=== PATIENT | female | born 1990 | race Caucasian/White ===

== ENCOUNTER 2021-11-12 20:58 | Inpatient (IN) | payer SELFPAY ==
[2021-11-12] MEDS ORDERED: ACETAMINOPHEN 500 MG TAB PO ONE (22:30)
--- NOTE | 2021-11-13 01:19 | Ultrasound Report ---
ULTRASOUND OBSTETRIC COMPLETE INDICATION / CLINICAL INFORMATION: ALICJA, EFW. Clinical Gestational Age (GA) in weeks, days: 34 weeks 2 days TECHNIQUE: Transabdominal. COMPARISON: None available. FINDINGS: NUMBER: Single PRESENTATION: cephalic PLACENTA: anterior and free of the os. MATERNAL ADNEXA: No significant abnormality. AMNIOTIC FLUID VOLUME: decreased AMNIOTIC FLUID INDEX (ALICJA) in cm (if measured): 2.8 BREATHING MOVEMENT = 2 GROSS BODY MOVEMENT = 2 TONE = 2 QUALITATIVE AMNIOTIC FLUID VOLUME = 2 TOTAL BIOPHYSICAL SCORE = 12/14 MEASUREMENTS: - Biparietal Diameter = 10.8 cm = 40 weeks 0 days - Head Circumference = 33.8 cm = 38 weeks 6 days - Abdominal Circumference = 36.5 cm = 40 weeks 3 days - Femur Length = 7.0 cm = 36 weeks 0 days - Estimated Weight (in grams, if calculated): 3959 - Heart Rate (beats per minute): 161 ADDITIONAL FINDINGS: None. AVERAGE ULTRASOUND AGE (AUA) in weeks, days = 38 weeks 4 days IMPRESSION: 1. Single intrauterine with AUA of 38 weeks 4 days. Estimated weight of 3959 g. 2. Diminished amniotic fluid index measuring 2.8 cm. 3. Biophysical profile 12/14. Signer Name: Ezequiel Lawler MD Signed: 11/13/2021 1:15 AM Workstation Name: [id number]
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
[2021-11-13] MEDS ORDERED: fentaNYL 100 MCG/2 ML INJ IV PRN (02:11)
[2021-11-13] MEDS ORDERED: SODIUM CHLORIDE 0.9% 1000 ML 1,000 ML IV ONE (02:11)
[2021-11-13] MEDS ORDERED: BUTORPHANOL 2 MG/1 ML INJ IV PRN (02:11)
[2021-11-13 02:52] LABS: Basophils % (Auto) 0.3 % (0.0-1.8); Eosinophils # (Auto) 0.1 K/mm3 (0.0-0.4); Eosinophils % (Auto) 1.4 % (0.0-4.3); Hematocrit 36.3 % (30.3-42.9); Hemoglobin 12.4 gm/dl (10.1-14.3); Lymphocytes # (Auto) 1.7 K/mm3 (1.2-5.4); Lymphocytes % (Auto) 28.5 % (13.4-35.0); Mean Corpuscular HGB Conc 34 % (30-34); Mean Corpuscular Volume 89 fl (79-97); Monocytes # (Auto) 0.3 K/mm3 (0.0-0.8); Monocytes % (Auto) 4.9 % (0.0-7.3); Platelet Count 108 K/mm3 (140-440); Red Blood Count 4.08 M/mm3 (3.65-5.03)
[2021-11-13 03:07] LABS: Alanine Aminotransferase 21 units/L (7-56); Albumin 3.5 g/dL (3.9-5); Blood Urea Nitrogen 10 mg/dL (7-17); Calcium 9.1 mg/dL (8.4-10.2); Hemolysis Index 16
[2021-11-13 03:09] LABS: BUN/Creatinine Ratio 25
[2021-11-13 05:06] LABS: Bacteria,Urine 3+ /HPF (Negative); Mucus,Urine FEW /HPF; RBC,Urine < 1.0 /HPF (0.0-6.0)
[2021-11-13 05:11] LABS: Bilirubin,Urine Negative (Negative); Blood,Urine Negative (Negative); Color,Urine Straw (Yellow); Urobilinogen,Urine < 2.0 mg/dL (<2.0)
[2021-11-13 05:17] LABS: Creatinine,Urine 108.7 mg/dL (0.1-20.0)
[2021-11-13] MEDS: INSULIN NPH, HUMAN 100 UNIT/1 ML SUB-Q SCH (10:25)
[2021-11-13] MEDS: INSULIN REGULAR, HUMAN 100 UNITS/1 ML SUB-Q SCH ×2 (10:26→18:02)
[2021-11-13] MEDS: ACETAMINOPHEN 325 MG TAB PO PRN (10:35)
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
--- NOTE | 2021-11-13 12:33 | Ultrasound Report ---
ULTRASOUND OBSTETRIC LIMITED INDICATION / CLINICAL INFORMATION: Newly dx'ed oligohydramnios Class B diabetes. Clinical Gestational Age (GA) in weeks, days: 34 weeks 1 day TECHNIQUE: Transabdominal. COMPARISON: Limited OB ultrasound with biophysical profile performed yesterday. FINDINGS: HEART RATE (beats per minute): 144 AMNIOTIC FLUID INDEX (cm) = 8.7 (normal = 7-24 cm) PRESENTATION: Cephalic. ADDITIONAL FINDINGS: Mild bilateral pyelectasis is noted. IMPRESSION: 1. Amniotic fluid index measures normal on today's exam at 8.7 cm, previously 2.8 cm. 2. Mild bilateral pyelectasis is incidentally noted. Scribed by: Lissette Obregon RDMS, SUMI, FLAVIO Scribed: 11/13/2021 11:28 AM I have reviewed the images, agree with this report, and edited this report as needed. Signer Name: Antonio Vasquez MD Signed: 11/13/2021 12:28 PM Workstation Name: [id number]
--- NOTE | 2021-11-13 13:30 | Event Note ---
Date: 11/13/21 S: Feeling ok O: ALICJA now 8.7, CAT I tracing A: 34.1 weeks with GDM poor control, now on insulin LGA baby P: APA consult appreciated 24 Hr urine Anti Aida titers requested Repeat ALICJA in 24-48 hrs
[2021-11-13] MEDS ORDERED: LACTATED RINGERS 1,000 ML ONE (14:54)
--- NOTE | 2021-11-13 17:57 | Electrocardiograph Report ---
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
[2021-11-14] MEDS: INSULIN NPH, HUMAN 100 UNIT/1 ML SUB-Q SCH ×3 (00:54→21:30)
[2021-11-14] MEDS: SODIUM CHLORIDE 0.9% 1000 ML 1,000 ML IV SCH (01:00)
[2021-11-14] MEDS ORDERED: ONDANSETRON 4 MG/2 ML INJ ONE (01:29)
[2021-11-14] MEDS ORDERED: ONDANSETRON 4 MG/2 ML INJ IV ONE (01:30)
[2021-11-14] MEDS: INSULIN REGULAR, HUMAN 100 UNITS/1 ML SUB-Q SCH ×2 (09:29→17:57)
--- NOTE | 2021-11-14 12:25 | Progress Note ---
Assessment and Plan A: IUP @ 34 2/7 Weeks IDDM Maternal Obesity LGA Low ALICJA P: Continue MD Management of IDDM Complete 24 hour urine collection Subjective - Subjective Date of service: 11/14/21 Patient reports: movement normal Objective - Vital Signs Vital Signs: Vital Signs - 12hr 11/14/21 11/14/21 11/14/21 00:24 00:29 00:34 Temperature Pulse Rate 79 79 83 Respiratory Rate Blood Pressure O2 Sat by Pulse 98 99 98 Oximetry O2 Sat by Pulse Oximetry [ Anterior Bilateral Throughout] O2 Sat by Pulse Oximetry [ Posterior Bilateral Throughout] 11/14/21 11/14/21 11/14/21 00:39 00:44 00:49 Temperature Pulse Rate 76 75 75 Respiratory Rate Blood Pressure O2 Sat by Pulse 98 98 98 Oximetry O2 Sat by Pulse Oximetry [ Anterior Bilateral Throughout] O2 Sat by Pulse Oximetry [ Posterior Bilateral Throughout] 11/14/21 11/14/21 11/14/21 00:54 00:59 01:02 Temperature Pulse Rate 74 75 78 Respiratory Rate Blood Pressure 137/84 O2 Sat by Pulse 98 98 Oximetry O2 Sat by Pulse Oximetry [ Anterior Bilateral Throughout] O2 Sat by Pulse Oximetry [ Posterior Bilateral Throughout] 11/14/21 11/14/21 11/14/21 01:04 05:15 05:20 Temperature 97.8 F Pulse Rate 78 80 Respiratory 17 Rate Blood Pressure 121/71 O2 Sat by Pulse 99 Oximetry O2 Sat by Pulse Oximetry [ Anterior Bilateral Throughout] O2 Sat by Pulse Oximetry [ Posterior Bilateral Throughout] 11/14/21 11/14/21 11/14/21 05:30 09:15 09:44 Temperature 98.7 F 98.1 F Pulse Rate 95 H Respiratory 16 16 Rate Blood Pressure 114/61 O2 Sat by Pulse 98 Oximetry O2 Sat by Pulse Oximetry [ Anterior Bilateral Throughout] O2 Sat by Pulse Oximetry [ Posterior Bilateral Throughout] 11/14/21 11/14/21 10:54 11:54 Temperature Pulse Rate 77 Respiratory Rate Blood Pressure 117/59 O2 Sat by Pulse Oximetry O2 Sat by Pulse 98 Oximetry [ Anterior Bilateral Throughout] O2 Sat by Pulse 98 Oximetry [ Posterior Bilateral Throughout] - Exam Breasts: normal Cardiovascular: Regular rate Lungs: Clear to auscultation, Normal air movement Abdomen: Present: normal appearance, soft, normal bowel sounds Uterus: Present: normal, firm, fundal height above umbilicus FHR: auscultation normal Uterine Contraction Monitor Mode: External Uterine Tone Measurement Phase: Resting Extremities: edema (+1 pedal edema (bilateral)) - Labs Labs: Abnormal Labs 11/13/21 11/13/21 11/13/21 02:11 02:38 02:38 Plt Count 108 L Sodium 134 L Carbon Dioxide 17 L Creatinine 0.4 L Glucose 104 H POC Glucose 120 H Hemoglobin A1c AST 42 H Alkaline Phosphatase 152 H Lactate Dehydrogenase 194 H Total Protein 6.2 L Albumin 3.5 L U Epithel Cells (Auto) Urine Creatinine Urine Total Protein 11/13/21 11/13/21 11/13/21 02:38 04:50 04:50 Plt Count Sodium Carbon Dioxide Creatinine Glucose POC Glucose Hemoglobin A1c 7.5 H AST Alkaline Phosphatase Lactate Dehydrogenase Total Protein Albumin U Epithel Cells (Auto) 15.0 H Urine Creatinine 108.7 H Urine Total Protein 60 H 11/13/21 11/13/21 11/14/21 12:49 18:02 11:53 Plt Count Sodium Carbon Dioxide Creatinine Glucose POC Glucose 119 H 184 H 109 H Hemoglobin A1c AST Alkaline Phosphatase Lactate Dehydrogenase Total Protein Albumin U Epithel Cells (Auto) Urine Creatinine Urine Total Protein Laboratory Results - last 24 hr 11/13/21 11/13/21 11/13/21 02:38 12:49 18:02 POC Glucose 119 H 184 H Blood Type O POSITIVE Antibody Screen Positive Antibody Identification Anti-K 11/14/21 11/14/21 05:27 11:53 POC Glucose 101 109 H Blood Type Antibody Screen Antibody Identification
--- NOTE | 2021-11-15 07:57 | Progress Note ---
Assessment and Plan A: IUP @ 34 3/7 Weeks IDDM Maternal Obesity LGA Low ALICJA P: Continue MD Management of IDDM Complete 24 hour urine collection (had to be restarted due to error) Subjective - Subjective Date of service: 11/15/21 Patient reports: movement normal Objective - Vital Signs Vital Signs: Vital Signs - 12hr 11/14/21 19:58 Pulse Rate 80 O2 Sat by Pulse 97 Oximetry - Exam Breasts: normal Cardiovascular: Regular rate Lungs: Clear to auscultation, Normal air movement Abdomen: Present: normal appearance, soft, normal bowel sounds Uterus: Present: normal, firm, fundal height above umbilicus FHR: auscultation normal Uterine Contraction Monitor Mode: External Uterine Tone Measurement Phase: Resting Extremities: normal - Labs Labs: Abnormal Labs 11/13/21 11/13/21 11/13/21 02:11 02:38 02:38 Plt Count 108 L Sodium 134 L Carbon Dioxide 17 L Creatinine 0.4 L Glucose 104 H POC Glucose 120 H Hemoglobin A1c AST 42 H Alkaline Phosphatase 152 H Lactate Dehydrogenase 194 H Total Protein 6.2 L Albumin 3.5 L U Epithel Cells (Auto) Urine Creatinine Urine Total Protein 11/13/21 11/13/21 11/13/21 02:38 04:50 04:50 Plt Count Sodium Carbon Dioxide Creatinine Glucose POC Glucose Hemoglobin A1c 7.5 H AST Alkaline Phosphatase Lactate Dehydrogenase Total Protein Albumin U Epithel Cells (Auto) 15.0 H Urine Creatinine 108.7 H Urine Total Protein 60 H 11/13/21 11/13/21 11/14/21 12:49 18:02 11:53 Plt Count Sodium Carbon Dioxide Creatinine Glucose POC Glucose 119 H 184 H 109 H Hemoglobin A1c AST Alkaline Phosphatase Lactate Dehydrogenase Total Protein Albumin U Epithel Cells (Auto) Urine Creatinine Urine Total Protein 11/14/21 11/14/21 11/15/21 15:16 19:59 05:38 Plt Count Sodium Carbon Dioxide Creatinine Glucose POC Glucose 130 H 114 H 68 L Hemoglobin A1c AST Alkaline Phosphatase Lactate Dehydrogenase Total Protein Albumin U Epithel Cells (Auto) Urine Creatinine Urine Total Protein Laboratory Results - last 24 hr 11/14/21 11/14/21 11/14/21 11:53 15:16 19:59 POC Glucose 109 H 130 H 114 H 11/15/21 11/15/21 05:38 07:22 POC Glucose 68 L 73
[2021-11-15] MEDS: INSULIN NPH, HUMAN 100 UNIT/1 ML SUB-Q SCH ×2 (09:33→22:17)
[2021-11-15] MEDS: INSULIN REGULAR, HUMAN 100 UNITS/1 ML SUB-Q SCH ×2 (09:35→18:36)
[2021-11-15 19:21] LABS: Creatinine,Urine 60.4 mg/dL (0.1-20.0)
[2021-11-16] MEDS: SODIUM CHLORIDE 0.9% 1000 ML 1,000 ML IV SCH (03:36)
[2021-11-16] MEDS: INSULIN REGULAR, HUMAN 100 UNITS/1 ML SUB-Q SCH ×2 (08:20→18:30)
[2021-11-16] MEDS: INSULIN NPH, HUMAN 100 UNIT/1 ML SUB-Q SCH ×2 (09:01→23:16)
[2021-11-16 09:49] LABS: Bilirubin,Urine NEG (Negative); Blood,Urine MOD (Negative); Color,Urine Yellow (Yellow); Urobilinogen,Urine < 2.0 mg/dL (<2.0)
[2021-11-16 09:54] LABS: Bacteria,Urine 4+ /HPF (Negative); Mucus,Urine FEW /HPF
[2021-11-16] MEDS: NITROFURANTOIN MONOHYD/M-CRYST 100 MG CAP PO SCH ×2 (12:00→23:17)
--- NOTE | 2021-11-16 13:14 | Ultrasound Report ---
US OB limited INDICATION: repeat ALICJA. TECHNIQUE: Transabdominal. COMPARISON: None available. FINDINGS: There is a single intrauterine . Heart Rate: 140 beats per minute. Position: cephalic. Amniotic Fluid Volume: decreased Amniotic Fluid Index (ALICJA) in cm (if calculated): 6.9. IMPRESSION: 1. Oligohydramnios. Signer Name: Dennis Vazquez MD Signed: 11/16/2021 1:09 PM Workstation Name: [employer]
--- NOTE | 2021-11-16 17:22 | Consultation ---
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 diabetic nephropathy - will need neph consult after delivery - BP's stable A) IUP @ 34 4/7 weeks per RONALD 12/24/21 via [facility] @ [facility] Pt under no MFM management AMA - 07/27/21 AFP Negative Morbid obesity Hx of GDM x 3 required insulin per patient's account With a 1 GTT of 244 mg there is a concern for PreGestational DM - pt and reports elevated FBS of 120's and PP of 140-150's under no medical therapy : Primary OB had been managing BS - current HgbA1C of 7.5% - while inpatient improved BS levels under medical therapy of QAM 49N/24R ; QPM 18R and QHS 18N Positive Antibody screen: Anti [place] no titer documented @ PNR ( pt reports she is unaware of this result and associated risks) - no documentation of FOC antigen screen Thrombocytopenia - presently PLT of 108K - PNR PLT of 123K - Stable BP with no [employer] features History of C/S : malpresentation 11/12/2021 [facility] US: EGA(AUA) 38.4 weeks Accelerated growth profile with EFW of 3959 gm @ 99% VTX Oligohydramnios with ALICJA of 2.8 cm ( Negative ROM plus ) BPP of 8/10 ( - 2 for ALICJA ) 11/13/2021 [facility] US: ALICJA of 8.7 cm kidneys appear with bilateral hydroneprohosis ( no measurement ) CAT 1 Tracing with irregular contractions Stable BP with no [employer] features P) Presently Pt is to remain in patient with continuous monitoring 2200 ADA diet Continue her current medical therapy Continue FBS and PP Repeat BPP with ALICJA in 48 hrs on 11/18/21 Obtain 24 hr urine and PreE labs see above Document baseline PreE labs Repeat CBC to be repeated Obtain hard copy of patient's lab from her OB clinic Obtain Antibody screen with titer...with confirm anti Aida antibody screen . Order MCA PSV Doppler if [facility] [employer] can do Document the [place] antibody status of the FOB. If the father is negative for the further evaluation is unnecessary. Confirm negative aneuploidy screen Discussed with pt and FOC at length Morbidity and Mortality risks associated with poorly controlled DM to inc IUFD timing of delivery will be at 36 weeks Consider repeat C/S if fluid < 5 or at 35 weeks if remains stable - difficult to rely on MCA PSV after 35 weeks Past History Past Medical History: no pertinent history, other (Gestational diabetes with all of her previous pregnancies. However, patient has not been formally evaluated for diabetes mellitus outside of .) Past Surgical History: section Family/Genetic History: diabetes - Obstetrical History : 4 Medications and Allergies Allergies Allergy/AdvReac Type Severity Reaction Status Date / Time No Known Allergies Allergy Unverified 04/23/15 18:30 Home Medications Medication Instructions Recorded Confirmed Last Taken Type Pnv,Calcium 72/Iron/Folic Acid 1 tab PO DAILY 05/16/15 11/16/21 11/12/21 History [Pnv Plus Multivit Tab] Active Meds: Active Medications Acetaminophen (Acetaminophen 325 Mg Tab) 650 mg PO Q4H PRN PRN Reason: Pain, Mild (1-3) Last Admin: 11/13/21 10:35 Dose: 650 mg Butorphanol Tartrate (Butorphanol 2 Mg/1 Ml Inj) 2 mg IV Q2H PRN PRN Reason: Pain, Moderate(4-6) [employer] Fentanyl (Fentanyl 100 Mcg/2 Ml Inj) 100 mcg IV Q2H PRN PRN Reason: Pain,Severe (7-10) [employer] PAIN Sodium Chloride (Nacl 0.9% 1000 Ml) 1,000 mls @ 125 mls/hr IV DIRECT [facility] Last Admin: 11/16/21 03:36 Dose: 125 mls/hr Insulin Human NPH (Insulin Nph, Human 100 Unit/1 Ml) 18 unit SUB-Q QHS [facility] Last Admin: 11/15/21 22:17 Dose: 18 unit Insulin Human NPH (Insulin Nph, Human 100 Unit/1 Ml) 49 unit SUB-Q 0730 [facility] Last Admin: 11/16/21 09:01 Dose: 49 unit Insulin Human Regular (Insulin Regular, Human 100 Units/1 Ml) 24 units SUB-Q 0730 [facility] Last Admin: 11/16/21 08:20 Dose: 24 units Insulin Human Regular (Insulin Regular, Human 100 Units/1 Ml) 18 units SUB-Q 1800 [facility] Last Admin: 11/15/21 18:36 Dose: 18 units Nitrofurantoin Macrocrystals (Nitrofurantoin Monohyd/M-Cryst 100 Mg Cap) 100 mg PO Q12HR [facility] Last Admin: 11/16/21 12:00 Dose: 100 mg - Vital Signs Vital signs: Vital Signs Pulse Pulse Ox 89 98 11/12/21 21:16 11/12/21 21:16 Temp Pulse Resp BP Pulse Ox 98.3 F 78 16 119/68 99 11/16/21 14:11 11/16/21 17:08 11/16/21 14:11 11/16/21 14:11 11/16/21 17:08 Results Result Diagrams: 11/13/21 02:38 11/13/21 02:38 Abnormal lab results 11/13/21 11/14/21 11/15/21 Range/Units 13:26 01:15 20:14 POC Glucose 137 H (70-105) mg/dL Urine WBC (Auto) (0.0-6.0) /HPF U Epithel Cells (Auto) (0-13.0) /HPF Urine Creatinine 60.4 H (0.1-20.0) mg/dL Ur Total Protein 24 Hr 580.00 H (2-200) mg/dL Urine Total Protein 29 H 26 H (5-11.8) mg/dL 11/16/21 11/16/21 11/16/21 Range/Units 09:15 10:38 14:12 POC Glucose 66 L 143 H (70-105) mg/dL Urine WBC (Auto) 18.0 H (0.0-6.0) /HPF U Epithel Cells (Auto) 25.0 H (0-13.0) /HPF Urine Creatinine (0.1-20.0) mg/dL Ur Total Protein 24 Hr (2-200) mg/dL Urine Total Protein (5-11.8) mg/dL All other labs normal.
--- NOTE | 2021-11-16 17:37 | Progress Note ---
Assessment and Plan A: HD5, @34.4wks today GDM, resolved Oligo, macrosomia P: Continue TOCO EFM Q4hr unless contractions starts continue BS monitoring and insulin administration Subjective - Subjective Date of service: 11/16/21 (1000) Principal diagnosis: GDM uncontrolled, oligohydramnios, macrosomia, anti shaunna antibody, csec x1 Patient reports: movement normal, other (pink tinge noted on tissue with urination) Objective - Vital Signs Vital Signs: Vital Signs - 12hr 11/16/21 11/16/21 11/16/21 08:11 08:12 08:17 Temperature 98.7 F Pulse Rate 90 89 83 Respiratory 16 Rate Blood Pressure 141/79 O2 Sat by Pulse 99 99 99 Oximetry O2 Sat by Pulse 99 Oximetry [ Anterior Bilateral Throughout] 11/16/21 11/16/21 11/16/21 14:10 14:11 14:15 Temperature 98.3 F Pulse Rate 74 73 75 Respiratory 16 Rate Blood Pressure 119/68 O2 Sat by Pulse 98 98 98 Oximetry O2 Sat by Pulse Oximetry [ Anterior Bilateral Throughout] 11/16/21 11/16/21 11/16/21 14:20 14:25 14:30 Temperature Pulse Rate 74 77 73 Respiratory Rate Blood Pressure O2 Sat by Pulse 98 98 97 Oximetry O2 Sat by Pulse Oximetry [ Anterior Bilateral Throughout] 11/16/21 11/16/21 11/16/21 14:35 14:40 14:45 Temperature Pulse Rate 71 72 73 Respiratory Rate Blood Pressure O2 Sat by Pulse 98 97 98 Oximetry O2 Sat by Pulse Oximetry [ Anterior Bilateral Throughout] 11/16/21 11/16/21 11/16/21 14:50 14:55 15:00 Temperature Pulse Rate 72 72 71 Respiratory Rate Blood Pressure O2 Sat by Pulse 98 98 97 Oximetry O2 Sat by Pulse Oximetry [ Anterior Bilateral Throughout] 11/16/21 11/16/21 11/16/21 15:05 15:10 15:15 Temperature Pulse Rate 71 71 73 Respiratory Rate Blood Pressure O2 Sat by Pulse 97 97 98 Oximetry O2 Sat by Pulse Oximetry [ Anterior Bilateral Throughout] 11/16/21 11/16/21 11/16/21 15:20 15:25 15:30 Temperature Pulse Rate 72 81 85 Respiratory Rate Blood Pressure O2 Sat by Pulse 98 98 98 Oximetry O2 Sat by Pulse Oximetry [ Anterior Bilateral Throughout] 11/16/21 11/16/21 11/16/21 15:35 15:40 15:45 Temperature Pulse Rate 82 83 76 Respiratory Rate Blood Pressure O2 Sat by Pulse 98 98 98 Oximetry O2 Sat by Pulse Oximetry [ Anterior Bilateral Throughout] 11/16/21 11/16/21 11/16/21 15:50 16:13 16:18 Temperature Pulse Rate 77 84 78 Respiratory Rate Blood Pressure O2 Sat by Pulse 98 98 97 Oximetry O2 Sat by Pulse Oximetry [ Anterior Bilateral Throughout] 11/16/21 11/16/21 11/16/21 16:23 16:28 16:33 Temperature Pulse Rate 80 75 75 Respiratory Rate Blood Pressure O2 Sat by Pulse 98 97 98 Oximetry O2 Sat by Pulse Oximetry [ Anterior Bilateral Throughout] 11/16/21 11/16/21 11/16/21 16:38 16:43 16:48 Temperature Pulse Rate 92 H 81 88 Respiratory Rate Blood Pressure O2 Sat by Pulse 99 98 99 Oximetry O2 Sat by Pulse Oximetry [ Anterior Bilateral Throughout] 11/16/21 11/16/21 11/16/21 16:53 16:58 17:03 Temperature Pulse Rate 77 78 81 Respiratory Rate Blood Pressure O2 Sat by Pulse 99 98 97 Oximetry O2 Sat by Pulse Oximetry [ Anterior Bilateral Throughout] 11/16/21 11/16/21 11/16/21 17:08 17:13 17:18 Temperature Pulse Rate 78 80 75 Respiratory Rate Blood Pressure O2 Sat by Pulse 99 98 98 Oximetry O2 Sat by Pulse Oximetry [ Anterior Bilateral Throughout] 11/16/21 17:23 Temperature Pulse Rate 74 Respiratory Rate Blood Pressure O2 Sat by Pulse 98 Oximetry O2 Sat by Pulse Oximetry [ Anterior Bilateral Throughout] - Exam Breasts: deferred Cardiovascular: Regular rate Lungs: Clear to auscultation Abdomen: Present: normal appearance Vulva: both: normal Uterus: Present: other (gravid) FHR: category 1 FHR comments: 125-130 Uterine Contraction Monitor Mode: External Cervical Dilatation: 0 (4cm exterior os) Cervical Effacement Percentage: 50 station: -4 Uterine Contraction Frequency (min): irregular Uterine Contraction Pattern: Irregular Uterine Contraction Intensity: Mild Extremities: normal Deep Tendon Reflex Grade: Normal +2 - Labs Labs: Abnormal Labs 11/13/21 11/13/21 11/13/21 02:11 02:38 02:38 Plt Count 108 L Sodium 134 L Carbon Dioxide 17 L Creatinine 0.4 L Glucose 104 H POC Glucose 120 H Hemoglobin A1c AST 42 H Alkaline Phosphatase 152 H Lactate Dehydrogenase 194 H Total Protein 6.2 L Albumin 3.5 L Urine WBC (Auto) U Epithel Cells (Auto) Urine Creatinine Ur Total Protein 24 Hr Urine Total Protein 11/13/21 11/13/21 11/13/21 02:38 04:50 04:50 Plt Count Sodium Carbon Dioxide Creatinine Glucose POC Glucose Hemoglobin A1c 7.5 H AST Alkaline Phosphatase Lactate Dehydrogenase Total Protein Albumin Urine WBC (Auto) U Epithel Cells (Auto) 15.0 H Urine Creatinine 108.7 H Ur Total Protein 24 Hr Urine Total Protein 60 H 11/13/21 11/13/21 11/13/21 12:49 13:26 18:02 Plt Count Sodium Carbon Dioxide Creatinine Glucose POC Glucose 119 H 184 H Hemoglobin A1c AST Alkaline Phosphatase Lactate Dehydrogenase Total Protein Albumin Urine WBC (Auto) U Epithel Cells (Auto) Urine Creatinine Ur Total Protein 24 Hr 580.00 H Urine Total Protein 29 H 11/14/21 11/14/21 11/14/21 01:15 11:53 15:16 Plt Count Sodium Carbon Dioxide Creatinine Glucose POC Glucose 109 H 130 H Hemoglobin A1c AST Alkaline Phosphatase Lactate Dehydrogenase Total Protein Albumin Urine WBC (Auto) U Epithel Cells (Auto) Urine Creatinine 60.4 H Ur Total Protein 24 Hr Urine Total Protein 26 H 11/14/21 11/15/21 11/15/21 19:59 05:38 15:44 Plt Count Sodium Carbon Dioxide Creatinine Glucose POC Glucose 114 H 68 L 158 H Hemoglobin A1c AST Alkaline Phosphatase Lactate Dehydrogenase Total Protein Albumin Urine WBC (Auto) U Epithel Cells (Auto) Urine Creatinine Ur Total Protein 24 Hr Urine Total Protein 11/15/21 11/16/21 11/16/21 20:14 09:15 10:38 Plt Count Sodium Carbon Dioxide Creatinine Glucose POC Glucose 137 H 66 L Hemoglobin A1c AST Alkaline Phosphatase Lactate Dehydrogenase Total Protein Albumin Urine WBC (Auto) 18.0 H U Epithel Cells (Auto) 25.0 H Urine Creatinine Ur Total Protein 24 Hr Urine Total Protein 11/16/21 14:12 Plt Count Sodium Carbon Dioxide Creatinine Glucose POC Glucose 143 H Hemoglobin A1c AST Alkaline Phosphatase Lactate Dehydrogenase Total Protein Albumin Urine WBC (Auto) U Epithel Cells (Auto) Urine Creatinine Ur Total Protein 24 Hr Urine Total Protein Laboratory Results - last 24 hr 11/13/21 11/13/21 11/14/21 02:38 13:26 01:15 POC Glucose Urine Color Urine Turbidity Urine pH Ur Specific [place] Urine Protein Urine Glucose (UA) Urine Ketones Urine Blood Urine Nitrite Urine Bilirubin Urine Urobilinogen Ur Leukocyte Esterase Urine WBC (Auto) Urine RBC (Auto) U Epithel Cells (Auto) Urine Bacteria (Auto) Urine Mucus Urine Total Volume 2000 Urine Creatinine 60.4 H Ur Total Protein 24 Hr 580.00 H Urine Total Protein 29 H 26 H Antibody Titer 11/15/21 11/16/21 11/16/21 20:14 06:29 09:15 POC Glucose 137 H 87 Urine Color Yellow Urine Turbidity Slightly-cloudy Urine pH 7.0 Ur Specific [place] 1.010 Urine Protein 30 mg/dl Urine Glucose (UA) Neg Urine Ketones Neg Urine Blood Mod Urine Nitrite Neg Urine Bilirubin Neg Urine Urobilinogen < 2.0 Ur Leukocyte Esterase Sm Urine WBC (Auto) 18.0 H Urine RBC (Auto) 16.0 U Epithel Cells (Auto) 25.0 H Urine Bacteria (Auto) 4+ Urine Mucus Few Urine Total Volume Urine Creatinine Ur Total Protein 24 Hr Urine Total Protein Antibody Titer 11/16/21 11/16/21 10:38 14:12 POC Glucose 66 L 143 H Urine Color Urine Turbidity Urine pH Ur Specific [place] Urine Protein Urine Glucose (UA) Urine Ketones Urine Blood Urine Nitrite Urine Bilirubin Urine Urobilinogen Ur Leukocyte Esterase Urine WBC (Auto) Urine RBC (Auto) U Epithel Cells (Auto) Urine Bacteria (Auto) Urine Mucus Urine Total Volume Urine Creatinine Ur Total Protein 24 Hr Urine Total Protein Antibody Titer - Results US- obstetric: pending (for position)
[2021-11-16 17:57] LABS: Basophils % (Auto) 0.4 % (0.0-1.8); Eosinophils # (Auto) 0.1 K/mm3 (0.0-0.4); Eosinophils % (Auto) 1.4 % (0.0-4.3); Hematocrit 34.8 % (30.3-42.9); Hemoglobin 11.7 gm/dl (10.1-14.3); Lymphocytes # (Auto) 1.4 K/mm3 (1.2-5.4); Lymphocytes % (Auto) 27.4 % (13.4-35.0); Mean Corpuscular HGB Conc 34 % (30-34); Mean Corpuscular Volume 91 fl (79-97); Monocytes # (Auto) 0.3 K/mm3 (0.0-0.8); Monocytes % (Auto) 5.6 % (0.0-7.3); Red Blood Count 3.82 M/mm3 (3.65-5.03); Red Cell Distribution Width 14.8 % (13.2-15.2)
[2021-11-16 18:02] LABS: Platelet Count 99 K/mm3 (140-440)
[2021-11-16 18:19] LABS: Alanine Aminotransferase 16 units/L (7-56); Albumin 3.1 g/dL (3.9-5); Blood Urea Nitrogen 11 mg/dL (7-17); Calcium 8.8 mg/dL (8.4-10.2); Hemolysis Index 2
[2021-11-16 18:23] LABS: BUN/Creatinine Ratio 22
[2021-11-17] MEDS ORDERED: INSULIN REGULAR, HUMAN 100 UNITS/1 ML SUB-Q SCH ×2 (01:24→07:30)
[2021-11-17] MEDS ORDERED: INSULIN NPH, HUMAN 100 UNIT/1 ML SUB-Q SCH (07:30)
[2021-11-17] MEDS: NITROFURANTOIN MONOHYD/M-CRYST 100 MG CAP PO SCH ×2 (09:30→22:18)
--- NOTE | 2021-11-17 10:42 | Progress Note ---
Assessment and Plan A: HD6 @34.5wks GDM vs Class B DM, MO, Gestational thrombocytopenia, anti-shaunna antibody,diabetic neuropathy resolved oligo, and macrosomia Fast BS and 2hrs PP CAT1 tracing [place] irregular Labs: Urine protein to cratinine ratio= 24 24 hr ruine protein 580 FBS 76 2hr PP 131 GBS pending anti shaunna titer pending Radiology: repeat U/S 11/18 BPP,ALICJA and MCA PSV ( anemia) P: Continuous monitoring, and current medical therapy Antinatal steroids ordered to promote lung maturity. Betamethasone #[address] Franklin. Neuphrology consult for possible diabetic nephropathy after delivery Insulin adjustments done by Dr. Avendaño anti shaunna titer for FOB requested by Nelly Duarte CNM to [facility] repeat Csection is ALICJA <5 or delivery at 35wks gestation Subjective - Subjective Date of service: 11/17/21 (1020) Principal diagnosis: GDM uncontrolled, oligohydramnios, macrosomia, anti shaunna antibody, csec x1 Patient reports: movement normal, contractions Objective - Vital Signs Vital Signs: Vital Signs - 12hr 11/17/21 11/17/21 11/17/21 02:26 02:31 02:36 Temperature Pulse Rate 73 77 78 Respiratory Rate Blood Pressure O2 Sat by Pulse 97 96 96 Oximetry O2 Sat by Pulse Oximetry [ Anterior Bilateral Throughout] 11/17/21 11/17/21 11/17/21 02:41 02:46 02:51 Temperature Pulse Rate 75 72 77 Respiratory Rate Blood Pressure O2 Sat by Pulse 96 98 98 Oximetry O2 Sat by Pulse Oximetry [ Anterior Bilateral Throughout] 11/17/21 11/17/21 11/17/21 02:56 03:01 03:06 Temperature Pulse Rate 73 77 72 Respiratory Rate Blood Pressure O2 Sat by Pulse 97 97 97 Oximetry O2 Sat by Pulse Oximetry [ Anterior Bilateral Throughout] 11/17/21 11/17/21 11/17/21 03:11 03:16 03:21 Temperature Pulse Rate 84 89 83 Respiratory Rate Blood Pressure O2 Sat by Pulse 97 88 98 Oximetry O2 Sat by Pulse Oximetry [ Anterior Bilateral Throughout] 11/17/21 11/17/21 11/17/21 03:25 03:26 03:31 Temperature Pulse Rate 82 83 76 Respiratory Rate Blood Pressure O2 Sat by Pulse 90 96 90 Oximetry O2 Sat by Pulse Oximetry [ Anterior Bilateral Throughout] 11/17/21 11/17/21 11/17/21 03:36 03:41 03:46 Temperature Pulse Rate 77 76 73 Respiratory Rate Blood Pressure O2 Sat by Pulse 97 98 97 Oximetry O2 Sat by Pulse Oximetry [ Anterior Bilateral Throughout] 11/17/21 11/17/21 11/17/21 03:51 03:53 07:55 Temperature 97.9 F Pulse Rate 75 84 82 Respiratory 18 Rate Blood Pressure 128/72 128/76 O2 Sat by Pulse 97 98 Oximetry O2 Sat by Pulse Oximetry [ Anterior Bilateral Throughout] 11/17/21 08:00 Temperature Pulse Rate Respiratory Rate Blood Pressure O2 Sat by Pulse Oximetry O2 Sat by Pulse 98 Oximetry [ Anterior Bilateral Throughout] - Exam Cardiovascular: Regular rate Lungs: Clear to auscultation Abdomen: Present: other (gravid) Uterus: Present: fundal height above umbilicus FHR: category 1 (mod varibility and acel) FHR comments: 125-130 Uterine Contraction Monitor Mode: External (1-4 min) Uterine Contraction Pattern: Irregular Uterine Contraction Intensity: Mild Extremities: normal Deep Tendon Reflex Grade: Normal +2 - Labs Labs: Abnormal Labs 11/13/21 11/13/21 11/13/21 02:11 02:38 02:38 Plt Count 108 L Sodium 134 L Carbon Dioxide 17 L Creatinine 0.4 L Glucose 104 H POC Glucose 120 H Hemoglobin A1c AST 42 H Alkaline Phosphatase 152 H Lactate Dehydrogenase 194 H Total Protein 6.2 L Albumin 3.5 L Urine WBC (Auto) U Epithel Cells (Auto) Urine Creatinine Ur Total Protein 24 Hr Urine Total Protein 11/13/21 11/13/21 11/13/21 02:38 04:50 04:50 Plt Count Sodium Carbon Dioxide Creatinine Glucose POC Glucose Hemoglobin A1c 7.5 H AST Alkaline Phosphatase Lactate Dehydrogenase Total Protein Albumin Urine WBC (Auto) U Epithel Cells (Auto) 15.0 H Urine Creatinine 108.7 H Ur Total Protein 24 Hr Urine Total Protein 60 H 11/13/21 11/13/21 11/13/21 12:49 13:26 18:02 Plt Count Sodium Carbon Dioxide Creatinine Glucose POC Glucose 119 H 184 H Hemoglobin A1c AST Alkaline Phosphatase Lactate Dehydrogenase Total Protein Albumin Urine WBC (Auto) U Epithel Cells (Auto) Urine Creatinine Ur Total Protein 24 Hr 580.00 H Urine Total Protein 29 H 11/14/21 11/14/21 11/14/21 01:15 11:53 15:16 Plt Count Sodium Carbon Dioxide Creatinine Glucose POC Glucose 109 H 130 H Hemoglobin A1c AST Alkaline Phosphatase Lactate Dehydrogenase Total Protein Albumin Urine WBC (Auto) U Epithel Cells (Auto) Urine Creatinine 60.4 H Ur Total Protein 24 Hr Urine Total Protein 26 H 11/14/21 11/15/21 11/15/21 19:59 05:38 15:44 Plt Count Sodium Carbon Dioxide Creatinine Glucose POC Glucose 114 H 68 L 158 H Hemoglobin A1c AST Alkaline Phosphatase Lactate Dehydrogenase Total Protein Albumin Urine WBC (Auto) U Epithel Cells (Auto) Urine Creatinine Ur Total Protein 24 Hr Urine Total Protein 11/15/21 11/16/21 11/16/21 20:14 09:15 10:38 Plt Count Sodium Carbon Dioxide Creatinine Glucose POC Glucose 137 H 66 L Hemoglobin A1c AST Alkaline Phosphatase Lactate Dehydrogenase Total Protein Albumin Urine WBC (Auto) 18.0 H U Epithel Cells (Auto) 25.0 H Urine Creatinine Ur Total Protein 24 Hr Urine Total Protein 11/16/21 11/16/21 11/16/21 14:12 17:25 17:25 Plt Count 99 L Sodium Carbon Dioxide 19 L Creatinine 0.5 L Glucose 106 H POC Glucose 143 H Hemoglobin A1c AST Alkaline Phosphatase 146 H Lactate Dehydrogenase Total Protein 5.9 L Albumin 3.1 L Urine WBC (Auto) U Epithel Cells (Auto) Urine Creatinine Ur Total Protein 24 Hr Urine Total Protein 11/16/21 11/16/21 11/17/21 18:30 23:15 10:16 Plt Count Sodium Carbon Dioxide Creatinine Glucose POC Glucose 120 H 147 H 131 H Hemoglobin A1c AST Alkaline Phosphatase Lactate Dehydrogenase Total Protein Albumin Urine WBC (Auto) U Epithel Cells (Auto) Urine Creatinine Ur Total Protein 24 Hr Urine Total Protein Laboratory Results - last 24 hr 11/16/21 11/16/21 11/16/21 10:38 14:12 17:25 WBC 5.1 RBC 3.82 Hgb 11.7 Hct 34.8 MCV 91 MCH 31 MCHC 34 RDW 14.8 Plt Count 99 L Lymph % (Auto) 27.4 [place] % (Auto) 5.6 Eos % (Auto) 1.4 Baso % (Auto) 0.4 Lymph # (Auto) 1.4 [place] # (Auto) 0.3 Eos # (Auto) 0.1 Baso # (Auto) 0.0 Seg Neutrophils % 65.2 Seg Neutrophils # 3.3 Sodium Potassium Chloride Carbon Dioxide Anion Gap BUN Creatinine Estimated GFR BUN/Creatinine Ratio Glucose POC Glucose 66 L 143 H Calcium Total Bilirubin AST ALT Alkaline Phosphatase Total Protein Albumin Albumin/Globulin Ratio 11/16/21 11/16/21 11/16/21 17:25 18:30 23:15 WBC RBC Hgb Hct MCV MCH MCHC RDW Plt Count Lymph % (Auto) [place] % (Auto) Eos % (Auto) Baso % (Auto) Lymph # (Auto) [place] # (Auto) Eos # (Auto) Baso # (Auto) Seg Neutrophils % Seg Neutrophils # Sodium 138 Potassium 4.0 Chloride 105.8 Carbon Dioxide 19 L Anion Gap 17 BUN 11 Creatinine 0.5 L Estimated GFR > 60 BUN/Creatinine Ratio 22 Glucose 106 H POC Glucose 120 H 147 H Calcium 8.8 Total Bilirubin 0.20 AST 36 ALT 16 Alkaline Phosphatase 146 H Total Protein 5.9 L Albumin 3.1 L Albumin/Globulin Ratio 1.1 11/17/21 11/17/21 11/17/21 06:10 08:16 10:16 WBC RBC Hgb Hct MCV MCH MCHC RDW Plt Count Lymph % (Auto) [place] % (Auto) Eos % (Auto) Baso % (Auto) Lymph # (Auto) [place] # (Auto) Eos # (Auto) Baso # (Auto) Seg Neutrophils % Seg Neutrophils # Sodium Potassium Chloride Carbon Dioxide Anion Gap BUN Creatinine Estimated GFR BUN/Creatinine Ratio Glucose POC Glucose 78 76 131 H Calcium Total Bilirubin AST ALT Alkaline Phosphatase Total Protein Albumin Albumin/Globulin Ratio - Results US- obstetric: pending (bpp, alicja and mcapsv)
[2021-11-17] MEDS: BETAMET ACET/BETAMET NA PH 6 MG/ML INJ 5 ML MDV IM SCH (10:55)
[2021-11-17] MEDS: INSULIN REGULAR, HUMAN 100 UNITS/1 ML SUB-Q SCH ×3 (14:07→22:23)
[2021-11-17] MEDS: INSULIN NPH, HUMAN 100 UNIT/1 ML SUB-Q SCH (22:14)
[2021-11-18] MEDS ORDERED: INSULIN NPH, HUMAN 100 UNIT/1 ML SUB-Q SCH (00:12)
[2021-11-18] MEDS: INSULIN REGULAR, HUMAN 100 UNITS/1 ML SUB-Q SCH ×4 (07:00→20:07)
[2021-11-18] MEDS ORDERED: INSULIN REGULAR, HUMAN 100 UNITS/1 ML SUB-Q SCH ×2 (07:30→18:00)
--- NOTE | 2021-11-18 10:35 | Progress Note ---
Assessment and Plan A: IUP @ 34 5/7 Weeks Category II Tracing IDDM Maternal Obesity LGA Previous P: Continue MD Management of IDDM Continuous Monitoring Complete Steriods Series Anticipate Delivery by in the AM Subjective - Subjective Date of service: 11/18/21 Principal diagnosis: GDM uncontrolled, oligohydramnios, macrosomia, anti shaunna antibody, csec x1 Patient reports: movement normal, contractions Objective - Vital Signs Vital Signs: Vital Signs - 12hr 11/18/21 11/18/21 11/18/21 00:21 00:26 00:31 Temperature Pulse Rate 87 85 81 Respiratory Rate Blood Pressure 126/68 Blood Pressure [Left] O2 Sat by Pulse 99 97 98 Oximetry O2 Sat by Pulse Oximetry [ Anterior Bilateral Throughout] 11/18/21 11/18/21 11/18/21 00:36 00:37 00:41 Temperature 98.5 F Pulse Rate 85 82 78 Respiratory 18 Rate Blood Pressure 116/62 Blood Pressure 116/62 [Left] O2 Sat by Pulse 99 98 Oximetry O2 Sat by Pulse Oximetry [ Anterior Bilateral Throughout] 11/18/21 11/18/21 11/18/21 00:46 00:51 00:56 Temperature Pulse Rate 83 81 75 Respiratory Rate Blood Pressure Blood Pressure [Left] O2 Sat by Pulse 96 96 96 Oximetry O2 Sat by Pulse Oximetry [ Anterior Bilateral Throughout] 11/18/21 11/18/21 11/18/21 01:01 04:30 04:59 Temperature 98.7 F Pulse Rate 80 82 66 Respiratory 18 Rate Blood Pressure 132/71 Blood Pressure 132/71 [Left] O2 Sat by Pulse 96 98 91 Oximetry O2 Sat by Pulse Oximetry [ Anterior Bilateral Throughout] 11/18/21 11/18/21 11/18/21 05:00 05:04 05:09 Temperature Pulse Rate 81 79 75 Respiratory Rate Blood Pressure 123/62 Blood Pressure [Left] O2 Sat by Pulse 97 96 Oximetry O2 Sat by Pulse Oximetry [ Anterior Bilateral Throughout] 11/18/21 11/18/21 11/18/21 05:14 05:19 05:24 Temperature Pulse Rate 79 80 81 Respiratory Rate Blood Pressure Blood Pressure [Left] O2 Sat by Pulse 96 95 96 Oximetry O2 Sat by Pulse Oximetry [ Anterior Bilateral Throughout] 11/18/21 11/18/21 11/18/21 05:29 05:34 05:39 Temperature Pulse Rate 77 77 77 Respiratory Rate Blood Pressure Blood Pressure [Left] O2 Sat by Pulse 96 97 96 Oximetry O2 Sat by Pulse Oximetry [ Anterior Bilateral Throughout] 11/18/21 11/18/21 11/18/21 07:40 07:41 09:38 Temperature 98.1 F Pulse Rate 86 86 80 Respiratory 18 Rate Blood Pressure 112/65 Blood Pressure 112/65 [Left] O2 Sat by Pulse 98 99 Oximetry O2 Sat by Pulse 98 Oximetry [ Anterior Bilateral Throughout] 11/18/21 11/18/21 11/18/21 09:43 09:48 09:53 Temperature Pulse Rate 83 79 88 Respiratory Rate Blood Pressure Blood Pressure [Left] O2 Sat by Pulse 99 99 98 Oximetry O2 Sat by Pulse Oximetry [ Anterior Bilateral Throughout] 11/18/21 11/18/21 11/18/21 09:58 10:03 10:08 Temperature Pulse Rate 82 82 85 Respiratory Rate Blood Pressure 116/59 Blood Pressure [Left] O2 Sat by Pulse 98 99 98 Oximetry O2 Sat by Pulse Oximetry [ Anterior Bilateral Throughout] 11/18/21 11/18/21 11/18/21 10:13 10:18 10:23 Temperature Pulse Rate 85 81 81 Respiratory Rate Blood Pressure Blood Pressure [Left] O2 Sat by Pulse 98 98 98 Oximetry O2 Sat by Pulse Oximetry [ Anterior Bilateral Throughout] 11/18/21 10:28 Temperature Pulse Rate 85 Respiratory Rate Blood Pressure Blood Pressure [Left] O2 Sat by Pulse 98 Oximetry O2 Sat by Pulse Oximetry [ Anterior Bilateral Throughout] - Exam Breasts: normal Cardiovascular: Regular rate Lungs: Clear to auscultation, Normal air movement Abdomen: Present: normal appearance, soft, normal bowel sounds Uterus: Present: normal, firm, fundal height above umbilicus FHR: category 2 FHR comments: FHR: 140; min to moderate varability, +accels,+isolated early decels Uterine Contraction Monitor Mode: External Cervical Dilatation: 3 (Vtx; Intact) Cervical Effacement Percentage: 50 station: -3 Uterine Contraction Pattern: Irregular Uterine Tone Measurement Phase: Resting Uterine Contraction Intensity: Mild Extremities: edema (+2 Pedal edema) - Labs Labs: Abnormal Labs 11/13/21 11/13/21 11/13/21 02:11 02:38 02:38 Plt Count 108 L Sodium 134 L Carbon Dioxide 17 L Creatinine 0.4 L Glucose 104 H POC Glucose 120 H Hemoglobin A1c AST 42 H Alkaline Phosphatase 152 H Lactate Dehydrogenase 194 H Total Protein 6.2 L Albumin 3.5 L Urine WBC (Auto) U Epithel Cells (Auto) Urine Creatinine Ur Total Protein 24 Hr Urine Total Protein 11/13/21 11/13/21 11/13/21 02:38 04:50 04:50 Plt Count Sodium Carbon Dioxide Creatinine Glucose POC Glucose Hemoglobin A1c 7.5 H AST Alkaline Phosphatase Lactate Dehydrogenase Total Protein Albumin Urine WBC (Auto) U Epithel Cells (Auto) 15.0 H Urine Creatinine 108.7 H Ur Total Protein 24 Hr Urine Total Protein 60 H 11/13/21 11/13/21 11/13/21 12:49 13:26 18:02 Plt Count Sodium Carbon Dioxide Creatinine Glucose POC Glucose 119 H 184 H Hemoglobin A1c AST Alkaline Phosphatase Lactate Dehydrogenase Total Protein Albumin Urine WBC (Auto) U Epithel Cells (Auto) Urine Creatinine Ur Total Protein 24 Hr 580.00 H Urine Total Protein 29 H 11/14/21 11/14/21 11/14/21 01:15 11:53 15:16 Plt Count Sodium Carbon Dioxide Creatinine Glucose POC Glucose 109 H 130 H Hemoglobin A1c AST Alkaline Phosphatase Lactate Dehydrogenase Total Protein Albumin Urine WBC (Auto) U Epithel Cells (Auto) Urine Creatinine 60.4 H Ur Total Protein 24 Hr Urine Total Protein 26 H 11/14/21 11/15/21 11/15/21 19:59 05:38 15:44 Plt Count Sodium Carbon Dioxide Creatinine Glucose POC Glucose 114 H 68 L 158 H Hemoglobin A1c AST Alkaline Phosphatase Lactate Dehydrogenase Total Protein Albumin Urine WBC (Auto) U Epithel Cells (Auto) Urine Creatinine Ur Total Protein 24 Hr Urine Total Protein 11/15/21 11/16/21 11/16/21 20:14 09:15 10:38 Plt Count Sodium Carbon Dioxide Creatinine Glucose POC Glucose 137 H 66 L Hemoglobin A1c AST Alkaline Phosphatase Lactate Dehydrogenase Total Protein Albumin Urine WBC (Auto) 18.0 H U Epithel Cells (Auto) 25.0 H Urine Creatinine Ur Total Protein 24 Hr Urine Total Protein 11/16/21 11/16/21 11/16/21 14:12 17:25 17:25 Plt Count 99 L Sodium Carbon Dioxide 19 L Creatinine 0.5 L Glucose 106 H POC Glucose 143 H Hemoglobin A1c AST Alkaline Phosphatase 146 H Lactate Dehydrogenase Total Protein 5.9 L Albumin 3.1 L Urine WBC (Auto) U Epithel Cells (Auto) Urine Creatinine Ur Total Protein 24 Hr Urine Total Protein 11/16/21 11/16/21 11/17/21 18:30 23:15 10:16 Plt Count Sodium Carbon Dioxide Creatinine Glucose POC Glucose 120 H 147 H 131 H Hemoglobin A1c AST Alkaline Phosphatase Lactate Dehydrogenase Total Protein Albumin Urine WBC (Auto) U Epithel Cells (Auto) Urine Creatinine Ur Total Protein 24 Hr Urine Total Protein 11/17/21 11/17/21 11/17/21 14:04 18:17 22:14 Plt Count Sodium Carbon Dioxide Creatinine Glucose POC Glucose 124 H 205 H 199 H Hemoglobin A1c AST Alkaline Phosphatase Lactate Dehydrogenase Total Protein Albumin Urine WBC (Auto) U Epithel Cells (Auto) Urine Creatinine Ur Total Protein 24 Hr Urine Total Protein 11/18/21 10:02 Plt Count Sodium Carbon Dioxide Creatinine Glucose POC Glucose 121 H Hemoglobin A1c AST Alkaline Phosphatase Lactate Dehydrogenase Total Protein Albumin Urine WBC (Auto) U Epithel Cells (Auto) Urine Creatinine Ur Total Protein 24 Hr Urine Total Protein Laboratory Results - last 24 hr 11/17/21 11/17/21 11/17/21 14:04 18:17 22:14 POC Glucose 124 H 205 H 199 H 11/18/21 11/18/21 05:51 10:02 POC Glucose 81 121 H
[2021-11-18] MEDS: ACETAMINOPHEN 325 MG TAB PO PRN (10:37)
[2021-11-18] MEDS: BETAMET ACET/BETAMET NA PH 6 MG/ML INJ 5 ML MDV IM SCH (10:38)
--- NOTE | 2021-11-18 16:40 | Ultrasound Report ---
US OB BPP wo non-stress, US OB limited INDICATION / CLINICAL INFORMATION: FWB. COMPARISON: 11/16/2021 FINDINGS: BREATHING MOVEMENT = 2 GROSS BODY MOVEMENT = 2 TONE = 2 QUALITATIVE AMNIOTIC FLUID VOLUME = 2 TOTAL BIOPHYSICAL SCORE = 8/8 AMNIOTIC FLUID INDEX (cm) = 13.1; previously measured 6.9 cm. PRESENTATION: Cephalic. HEART RATE (beats per minute): 162 IMPRESSION: 1. biophysical profile = 12/14 2. Amniotic fluid index is now within normal limits, measuring 13.1 cm. Signer Name: Ezequiel Lawler MD Signed: 11/18/2021 4:25 PM Workstation Name: [id number]
--- NOTE | 2021-11-18 18:18 | Vascular Lab Report ---
transcranial Ultrasound HISTORY: assess blood flow of the fetus middle cerebral artery. TECHNIQUE: Grayscale and Doppler imaging performed. COMPARISON: None FINDINGS: The right and left middle cerebral arteries were imaged. Right MCA: RI of 0.81 and PI of 1.68. Left MCA: RI of 0.8 and PI of 1.44. IMPRESSION: Preserved blood flow in both mineral cerebral arteries with symmetric resistivity and pul satility index findings. Signer Name: Rodriguez Hsieh MD Signed: 11/18/2021 6:14 PM Workstation Name: [id number]
[2021-11-18] MEDS: INSULIN NPH, HUMAN 100 UNIT/1 ML SUB-Q SCH (22:27)
[2021-11-19] MEDS ORDERED: INSULIN NPH, HUMAN 100 UNIT/1 ML SUB-Q SCH (00:35)
--- NOTE | 2021-11-19 00:47 | Event Note ---
Date: 11/18/21 OB Ultrasound Limited= ALICJA= 13.1 cm. BPP= 8/8 OB MCA Dopplers= Preserved blood flow in both middle cerebral arteries with symmetric resistivity and pulsatility index findings. GBS (-) As OB MCA Dopplers are normal, delivery at 36 weeks gestation per maternal- medicine recommendations. Right delivery will be repeat delivery. Second dose of betamethasone given this evening. Adjust insulin regimen to keep fasting glucoses between 7999 and 2-hour postmeal glucoses below 120.
[2021-11-19] MEDS: INSULIN REGULAR, HUMAN 100 UNITS/1 ML SUB-Q SCH ×4 (02:18→21:51)
--- NOTE | 2021-11-19 17:25 | Consultation ---
History of Present Illness Consult date: 11/19/21 Reason for consult: medical complication History of present illness: As you are likely aware Ms. Carol Gautam is currently at 34 weeks and 6 days and is being evaluated at [facility] due to a category 2 tracing insulin-dependent diabetes maternal obesity and a large for gestational age fetus. This patient also has a history of a previous delivery. She is hospitalized for monitoring of diabetes continuous monitoring and to complete a steroid series. The plan of delivery via [facility] is delivery at 36 weeks. Delivery will be by delivery. The patient is getting a second dose of steroids today. We will continue to monitor her fasting blood glucose to maintain blood sugars between 60 and 99 and 2-hour postprandial values to be less than 120 mg/dL. Past History Past Medical History: no pertinent history, other (Gestational diabetes with all of her previous pregnancies. However, patient has not been formally evaluated for diabetes mellitus outside of .) Past Surgical History: section Family/Genetic History: diabetes - Obstetrical History : 4 Medications and Allergies Allergies Allergy/AdvReac Type Severity Reaction Status Date / Time No Known Allergies Allergy Unverified 04/23/15 18:30 Home Medications Medication Instructions Recorded Confirmed Last Taken Type Pnv,Calcium 72/Iron/Folic Acid 1 tab PO DAILY 05/16/15 11/16/21 11/12/21 History [Pnv Plus Multivit Tab] Active Meds: Active Medications Acetaminophen (Acetaminophen 325 Mg Tab) 650 mg PO Q4H PRN PRN Reason: Pain, Mild (1-3) Last Admin: 11/18/21 10:37 Dose: 650 mg Butorphanol Tartrate (Butorphanol 2 Mg/1 Ml Inj) 2 mg IV Q2H PRN PRN Reason: Pain, Moderate(4-6) LABOR PAIN Fentanyl (Fentanyl 100 Mcg/2 Ml Inj) 100 mcg IV Q2H PRN PRN Reason: Pain,Severe (7-10) LABOR PAIN Sodium Chloride (Nacl 0.9% 1000 Ml) 1,000 mls @ 125 mls/hr IV DIRECT ZAHIDA Last Admin: 11/16/21 03:36 Dose: 125 mls/hr Insulin Human NPH (Insulin Nph, Human 100 Unit/1 Ml) 20 unit SUB-Q QHS ZAHIDA Last Admin: 11/18/21 22:27 Dose: 20 unit Insulin Human NPH (Insulin Nph, Human 100 Unit/1 Ml) 85 unit SUB-Q 0730 [facility] Last Admin: 11/19/21 08:11 Dose: 85 unit Insulin Human Regular (Insulin Regular, Human 100 Units/1 Ml) 0 units SUB-Q Q4HR [facility]; Protocol Last Admin: 11/19/21 06:29 Dose: Not Given Insulin Human Regular (Insulin Regular, Human 100 Units/1 Ml) 30 units SUB-Q 0730 [facility] Last Admin: 11/19/21 08:10 Dose: 30 units Insulin Human Regular (Insulin Regular, Human 100 Units/1 Ml) 55 units SUB-Q 1730 [facility] Last Admin: 11/19/21 17:18 Dose: 55 units - Vital Signs Vital signs: Vital Signs Pulse Pulse Ox 89 98 11/12/21 21:16 11/12/21 21:16 Temp Pulse Resp BP Pulse Ox 98.2 F 76 16 136/77 80 L 11/19/21 16:27 11/19/21 15:53 11/19/21 16:27 11/19/21 15:53 11/19/21 15:53 Results Result Diagrams: 11/16/21 17:25 11/16/21 17:25 Abnormal lab results 11/18/21 11/18/21 11/18/21 Range/Units 18:01 19:36 22:22 POC Glucose 235 H 191 H 193 H (70-105) mg/dL 11/19/21 11/19/21 11/19/21 Range/Units 02:17 06:17 10:58 POC Glucose 130 H 110 H 112 H (70-105) mg/dL 11/19/21 Range/Units 15:06 POC Glucose 120 H (70-105) mg/dL All other labs normal. Assessment and Plan Assessment: Intrauterine at 34 weeks and 6 days care at [facility] Advanced maternal age AFP test negative Morbid obesity History of gestational diabetes x 3 requiring insulin Current hemoglobin A1c is 7.5% Positive antibody screen for anti-[place] with no titer available History of thrombocytopenia History of delivery Large for gestational age fetus Recommendations: Continue hospitalization. 2199 ADA diet Continue medical care as noted above Repeat biophysical profile and amniotic fluid index as indicated Confirm antibody screen Delivery at 36 weeks
[2021-11-19] MEDS ORDERED: INSULIN REGULAR, HUMAN 100 UNITS/1 ML SUB-Q SCH (17:30)
--- NOTE | 2021-11-19 17:35 | Event Note ---
Date: 11/19/21 S: Spoke with patient and her family regarding plan of care. She is in agreement with the plan of care. O: Reactive NST , BS ranging 112 fasting to 193(last evening) A: 35.0 weeks with IDDM P: Encourage ambulation NST q8 hours Plan for 36 weeks per [facility]
[2021-11-19] MEDS: INSULIN NPH, HUMAN 100 UNIT/1 ML SUB-Q SCH (21:52)
[2021-11-20] MEDS ORDERED: INSULIN NPH, HUMAN 100 UNIT/1 ML SUB-Q ONE (00:10)
[2021-11-20] MEDS: INSULIN REGULAR, HUMAN 100 UNITS/1 ML SUB-Q SCH ×3 (04:38→17:16)
[2021-11-20] MEDS: INSULIN NPH, HUMAN 100 UNIT/1 ML SUB-Q SCH (09:01)
--- NOTE | 2021-11-20 16:52 | Progress Note ---
Assessment and Plan A: IDDM @ 35.1 weeks P: Continue current plan of care Plan is for @ 36 weeks gestation Subjective - Subjective Date of service: 11/20/21 Principal diagnosis: GDM uncontrolled, oligohydramnios, macrosomia, anti shaunna antibody, csec x1 Patient reports: movement normal, contractions Objective - Vital Signs Vital Signs: Vital Signs - 12hr 11/20/21 11/20/21 11/20/21 06:14 06:15 08:52 Temperature 98.3 F Pulse Rate 70 72 Respiratory Rate Blood Pressure 140/76 137/81 O2 Sat by Pulse Oximetry 11/20/21 11/20/21 11/20/21 08:53 08:55 15:49 Temperature 98.3 F Pulse Rate 71 65 Respiratory 18 Rate Blood Pressure O2 Sat by Pulse 92 100 Oximetry 11/20/21 11/20/21 11/20/21 15:54 15:59 16:04 Temperature Pulse Rate 73 72 69 Respiratory Rate Blood Pressure 115/61 O2 Sat by Pulse 99 97 96 Oximetry 11/20/21 11/20/21 11/20/21 16:06 16:09 16:14 Temperature Pulse Rate 78 70 73 Respiratory Rate Blood Pressure O2 Sat by Pulse 91 97 99 Oximetry 11/20/21 11/20/21 11/20/21 16:19 16:24 16:29 Temperature Pulse Rate 71 70 70 Respiratory Rate Blood Pressure O2 Sat by Pulse 97 99 98 Oximetry 11/20/21 11/20/21 11/20/21 16:34 16:36 16:39 Temperature Pulse Rate 69 76 71 Respiratory Rate Blood Pressure O2 Sat by Pulse 98 89 100 Oximetry 11/20/21 11/20/21 11/20/21 16:41 16:44 16:48 Temperature Pulse Rate 74 71 76 Respiratory Rate Blood Pressure O2 Sat by Pulse 93 99 93 Oximetry 11/20/21 16:49 Temperature Pulse Rate 71 Respiratory Rate Blood Pressure O2 Sat by Pulse 94 Oximetry - Exam Breasts: deferred Cardiovascular: Regular rate Lungs: Clear to auscultation Abdomen: Present: soft Vulva: both: normal Uterus: Present: fundal height above umbilicus FHR: auscultation normal, category 1 Uterine Contraction Monitor Mode: External Uterine Contraction Pattern: Absent Extremities: normal Deep Tendon Reflex Grade: Normal +2 - Labs Labs: Abnormal Labs 11/13/21 11/13/21 11/13/21 02:11 02:38 02:38 Plt Count 108 L Sodium 134 L Carbon Dioxide 17 L Creatinine 0.4 L Glucose 104 H POC Glucose 120 H Hemoglobin A1c AST 42 H Alkaline Phosphatase 152 H Lactate Dehydrogenase 194 H Total Protein 6.2 L Albumin 3.5 L Urine WBC (Auto) U Epithel Cells (Auto) Urine Creatinine Ur Total Protein 24 Hr Urine Total Protein 11/13/21 11/13/21 11/13/21 02:38 04:50 04:50 Plt Count Sodium Carbon Dioxide Creatinine Glucose POC Glucose Hemoglobin A1c 7.5 H AST Alkaline Phosphatase Lactate Dehydrogenase Total Protein Albumin Urine WBC (Auto) U Epithel Cells (Auto) 15.0 H Urine Creatinine 108.7 H Ur Total Protein 24 Hr Urine Total Protein 60 H 11/13/21 11/13/21 11/13/21 12:49 13:26 18:02 Plt Count Sodium Carbon Dioxide Creatinine Glucose POC Glucose 119 H 184 H Hemoglobin A1c AST Alkaline Phosphatase Lactate Dehydrogenase Total Protein Albumin Urine WBC (Auto) U Epithel Cells (Auto) Urine Creatinine Ur Total Protein 24 Hr 580.00 H Urine Total Protein 29 H 11/14/21 11/14/21 11/14/21 01:15 11:53 15:16 Plt Count Sodium Carbon Dioxide Creatinine Glucose POC Glucose 109 H 130 H Hemoglobin A1c AST Alkaline Phosphatase Lactate Dehydrogenase Total Protein Albumin Urine WBC (Auto) U Epithel Cells (Auto) Urine Creatinine 60.4 H Ur Total Protein 24 Hr Urine Total Protein 26 H 11/14/21 11/15/21 11/15/21 19:59 05:38 15:44 Plt Count Sodium Carbon Dioxide Creatinine Glucose POC Glucose 114 H 68 L 158 H Hemoglobin A1c AST Alkaline Phosphatase Lactate Dehydrogenase Total Protein Albumin Urine WBC (Auto) U Epithel Cells (Auto) Urine Creatinine Ur Total Protein 24 Hr Urine Total Protein 11/15/21 11/16/21 11/16/21 20:14 09:15 10:38 Plt Count Sodium Carbon Dioxide Creatinine Glucose POC Glucose 137 H 66 L Hemoglobin A1c AST Alkaline Phosphatase Lactate Dehydrogenase Total Protein Albumin Urine WBC (Auto) 18.0 H U Epithel Cells (Auto) 25.0 H Urine Creatinine Ur Total Protein 24 Hr Urine Total Protein 11/16/21 11/16/21 11/16/21 14:12 17:25 17:25 Plt Count 99 L Sodium Carbon Dioxide 19 L Creatinine 0.5 L Glucose 106 H POC Glucose 143 H Hemoglobin A1c AST Alkaline Phosphatase 146 H Lactate Dehydrogenase Total Protein 5.9 L Albumin 3.1 L Urine WBC (Auto) U Epithel Cells (Auto) Urine Creatinine Ur Total Protein 24 Hr Urine Total Protein 11/16/21 11/16/21 11/17/21 18:30 23:15 10:16 Plt Count Sodium Carbon Dioxide Creatinine Glucose POC Glucose 120 H 147 H 131 H Hemoglobin A1c AST Alkaline Phosphatase Lactate Dehydrogenase Total Protein Albumin Urine WBC (Auto) U Epithel Cells (Auto) Urine Creatinine Ur Total Protein 24 Hr Urine Total Protein 11/17/21 11/17/21 11/17/21 14:04 18:17 22:14 Plt Count Sodium Carbon Dioxide Creatinine Glucose POC Glucose 124 H 205 H 199 H Hemoglobin A1c AST Alkaline Phosphatase Lactate Dehydrogenase Total Protein Albumin Urine WBC (Auto) U Epithel Cells (Auto) Urine Creatinine Ur Total Protein 24 Hr Urine Total Protein 11/18/21 11/18/21 11/18/21 10:02 14:44 18:01 Plt Count Sodium Carbon Dioxide Creatinine Glucose POC Glucose 121 H 203 H 235 H Hemoglobin A1c AST Alkaline Phosphatase Lactate Dehydrogenase Total Protein Albumin Urine WBC (Auto) U Epithel Cells (Auto) Urine Creatinine Ur Total Protein 24 Hr Urine Total Protein 11/18/21 11/18/21 11/19/21 19:36 22:22 02:17 Plt Count Sodium Carbon Dioxide Creatinine Glucose POC Glucose 191 H 193 H 130 H Hemoglobin A1c AST Alkaline Phosphatase Lactate Dehydrogenase Total Protein Albumin Urine WBC (Auto) U Epithel Cells (Auto) Urine Creatinine Ur Total Protein 24 Hr Urine Total Protein 11/19/21 11/19/21 11/19/21 06:17 10:58 15:06 Plt Count Sodium Carbon Dioxide Creatinine Glucose POC Glucose 110 H 112 H 120 H Hemoglobin A1c AST Alkaline Phosphatase Lactate Dehydrogenase Total Protein Albumin Urine WBC (Auto) U Epithel Cells (Auto) Urine Creatinine Ur Total Protein 24 Hr Urine Total Protein 11/19/21 11/20/21 21:47 00:43 Plt Count Sodium Carbon Dioxide Creatinine Glucose POC Glucose 137 H 110 H Hemoglobin A1c AST Alkaline Phosphatase Lactate Dehydrogenase Total Protein Albumin Urine WBC (Auto) U Epithel Cells (Auto) Urine Creatinine Ur Total Protein 24 Hr Urine Total Protein Laboratory Results - last 24 hr 11/19/21 11/20/21 11/20/21 21:47 00:43 08:48 POC Glucose 137 H 110 H 77 11/20/21 15:53 POC Glucose 95
[2021-11-21] MEDS: INSULIN NPH, HUMAN 100 UNIT/1 ML SUB-Q SCH ×2 (07:45→21:35)
[2021-11-21] MEDS: INSULIN REGULAR, HUMAN 100 UNITS/1 ML SUB-Q SCH ×3 (07:45→22:35)
--- NOTE | 2021-11-21 10:08 | Progress Note ---
Assessment and Plan A: 35.2 wks gestation IDDM continue hosp plan of care P: TOCO/EFM Q4 hrs Continue antepartum monitoring per hospital protocol Insulin adminitration repeat Csec at 36 wks Subjective - Subjective Date of service: 11/21/21 Principal diagnosis: GDM uncontrolled, oligohydramnios, macrosomia, anti shaunna antibody, csec x1 Patient reports: movement normal, contractions Objective - Vital Signs Vital Signs: Vital Signs - 12hr 11/20/21 11/20/21 11/20/21 22:08 22:13 22:18 Temperature Pulse Rate 68 74 72 Respiratory Rate Blood Pressure O2 Sat by Pulse 94 94 99 Oximetry O2 Sat by Pulse Oximetry [ Anterior Bilateral Throughout] 11/20/21 11/20/21 11/20/21 22:19 22:23 22:27 Temperature Pulse Rate 78 77 79 Respiratory Rate Blood Pressure O2 Sat by Pulse 94 97 90 Oximetry O2 Sat by Pulse Oximetry [ Anterior Bilateral Throughout] 11/20/21 11/20/21 11/20/21 22:28 22:33 22:34 Temperature Pulse Rate 73 87 92 H Respiratory Rate Blood Pressure O2 Sat by Pulse 97 96 92 Oximetry O2 Sat by Pulse Oximetry [ Anterior Bilateral Throughout] 11/20/21 11/20/21 11/20/21 22:39 22:49 23:14 Temperature Pulse Rate 113 H 53 L Respiratory Rate Blood Pressure O2 Sat by Pulse 92 80 L 0 L Oximetry O2 Sat by Pulse Oximetry [ Anterior Bilateral Throughout] 11/20/21 11/20/21 11/20/21 23:16 23:21 23:26 Temperature Pulse Rate 79 79 75 Respiratory Rate Blood Pressure O2 Sat by Pulse 94 98 98 Oximetry O2 Sat by Pulse Oximetry [ Anterior Bilateral Throughout] 11/20/21 11/20/21 11/20/21 23:31 23:36 23:41 Temperature Pulse Rate 72 76 72 Respiratory Rate Blood Pressure O2 Sat by Pulse 98 98 98 Oximetry O2 Sat by Pulse Oximetry [ Anterior Bilateral Throughout] 11/20/21 11/20/21 11/20/21 23:46 23:51 23:56 Temperature Pulse Rate 73 74 76 Respiratory Rate Blood Pressure O2 Sat by Pulse 98 98 95 Oximetry O2 Sat by Pulse Oximetry [ Anterior Bilateral Throughout] 11/21/21 11/21/21 11/21/21 00:01 00:06 00:11 Temperature Pulse Rate 70 69 71 Respiratory Rate Blood Pressure O2 Sat by Pulse 96 97 96 Oximetry O2 Sat by Pulse Oximetry [ Anterior Bilateral Throughout] 11/21/21 11/21/21 11/21/21 00:16 00:21 00:26 Temperature Pulse Rate 72 71 67 Respiratory Rate Blood Pressure O2 Sat by Pulse 97 95 96 Oximetry O2 Sat by Pulse Oximetry [ Anterior Bilateral Throughout] 11/21/21 11/21/21 11/21/21 00:28 00:31 00:35 Temperature Pulse Rate 66 71 82 Respiratory Rate Blood Pressure O2 Sat by Pulse 94 96 91 Oximetry O2 Sat by Pulse Oximetry [ Anterior Bilateral Throughout] 11/21/21 11/21/21 11/21/21 00:36 00:41 00:46 Temperature Pulse Rate 67 69 83 Respiratory Rate Blood Pressure O2 Sat by Pulse 98 98 97 Oximetry O2 Sat by Pulse Oximetry [ Anterior Bilateral Throughout] 11/21/21 11/21/21 11/21/21 00:51 00:56 00:59 Temperature Pulse Rate 68 66 85 Respiratory Rate Blood Pressure O2 Sat by Pulse 97 96 93 Oximetry O2 Sat by Pulse Oximetry [ Anterior Bilateral Throughout] 11/21/21 11/21/21 11/21/21 01:01 01:06 01:11 Temperature Pulse Rate 74 66 69 Respiratory Rate Blood Pressure O2 Sat by Pulse 98 98 98 Oximetry O2 Sat by Pulse Oximetry [ Anterior Bilateral Throughout] 11/21/21 11/21/21 11/21/21 01:16 01:21 01:26 Temperature Pulse Rate 67 65 64 Respiratory Rate Blood Pressure O2 Sat by Pulse 98 98 98 Oximetry O2 Sat by Pulse Oximetry [ Anterior Bilateral Throughout] 11/21/21 11/21/21 11/21/21 01:31 01:36 01:40 Temperature Pulse Rate 62 67 85 Respiratory Rate Blood Pressure O2 Sat by Pulse 98 98 88 Oximetry O2 Sat by Pulse Oximetry [ Anterior Bilateral Throughout] 11/21/21 11/21/21 11/21/21 01:41 06:02 07:00 Temperature 98.7 F Pulse Rate 72 67 Respiratory 16 Rate Blood Pressure 139/81 160/75 O2 Sat by Pulse 99 Oximetry O2 Sat by Pulse Oximetry [ Anterior Bilateral Throughout] 11/21/21 11/21/21 11/21/21 07:56 07:57 08:00 Temperature Pulse Rate 68 Respiratory Rate Blood Pressure 135/75 O2 Sat by Pulse 90 Oximetry O2 Sat by Pulse 96 Oximetry [ Anterior Bilateral Throughout] - Exam Breasts: deferred Cardiovascular: Regular rate Lungs: Clear to auscultation Abdomen: Present: normal appearance Uterus: Present: fundal height above umbilicus (gravid) FHR: category 1 Uterine Contraction Monitor Mode: External Uterine Contraction Pattern: Irregular Uterine Contraction Intensity: Mild Extremities: normal Deep Tendon Reflex Grade: Normal +2 - Labs Labs: Abnormal Labs 11/13/21 11/13/21 11/13/21 02:11 02:38 02:38 Plt Count 108 L Sodium 134 L Carbon Dioxide 17 L Creatinine 0.4 L Glucose 104 H POC Glucose 120 H Hemoglobin A1c AST 42 H Alkaline Phosphatase 152 H Lactate Dehydrogenase 194 H Total Protein 6.2 L Albumin 3.5 L Urine WBC (Auto) U Epithel Cells (Auto) Urine Creatinine Ur Total Protein 24 Hr Urine Total Protein 11/13/21 11/13/21 11/13/21 02:38 04:50 04:50 Plt Count Sodium Carbon Dioxide Creatinine Glucose POC Glucose Hemoglobin A1c 7.5 H AST Alkaline Phosphatase Lactate Dehydrogenase Total Protein Albumin Urine WBC (Auto) U Epithel Cells (Auto) 15.0 H Urine Creatinine 108.7 H Ur Total Protein 24 Hr Urine Total Protein 60 H 11/13/21 11/13/21 11/13/21 12:49 13:26 18:02 Plt Count Sodium Carbon Dioxide Creatinine Glucose POC Glucose 119 H 184 H Hemoglobin A1c AST Alkaline Phosphatase Lactate Dehydrogenase Total Protein Albumin Urine WBC (Auto) U Epithel Cells (Auto) Urine Creatinine Ur Total Protein 24 Hr 580.00 H Urine Total Protein 29 H 11/14/21 11/14/21 11/14/21 01:15 11:53 15:16 Plt Count Sodium Carbon Dioxide Creatinine Glucose POC Glucose 109 H 130 H Hemoglobin A1c AST Alkaline Phosphatase Lactate Dehydrogenase Total Protein Albumin Urine WBC (Auto) U Epithel Cells (Auto) Urine Creatinine 60.4 H Ur Total Protein 24 Hr Urine Total Protein 26 H 11/14/21 11/15/21 11/15/21 19:59 05:38 15:44 Plt Count Sodium Carbon Dioxide Creatinine Glucose POC Glucose 114 H 68 L 158 H Hemoglobin A1c AST Alkaline Phosphatase Lactate Dehydrogenase Total Protein Albumin Urine WBC (Auto) U Epithel Cells (Auto) Urine Creatinine Ur Total Protein 24 Hr Urine Total Protein 11/15/21 11/16/21 11/16/21 20:14 09:15 10:38 Plt Count Sodium Carbon Dioxide Creatinine Glucose POC Glucose 137 H 66 L Hemoglobin A1c AST Alkaline Phosphatase Lactate Dehydrogenase Total Protein Albumin Urine WBC (Auto) 18.0 H U Epithel Cells (Auto) 25.0 H Urine Creatinine Ur Total Protein 24 Hr Urine Total Protein 11/16/21 11/16/21 11/16/21 14:12 17:25 17:25 Plt Count 99 L Sodium Carbon Dioxide 19 L Creatinine 0.5 L Glucose 106 H POC Glucose 143 H Hemoglobin A1c AST Alkaline Phosphatase 146 H Lactate Dehydrogenase Total Protein 5.9 L Albumin 3.1 L Urine WBC (Auto) U Epithel Cells (Auto) Urine Creatinine Ur Total Protein 24 Hr Urine Total Protein 11/16/21 11/16/21 11/17/21 18:30 23:15 10:16 Plt Count Sodium Carbon Dioxide Creatinine Glucose POC Glucose 120 H 147 H 131 H Hemoglobin A1c AST Alkaline Phosphatase Lactate Dehydrogenase Total Protein Albumin Urine WBC (Auto) U Epithel Cells (Auto) Urine Creatinine Ur Total Protein 24 Hr Urine Total Protein 11/17/21 11/17/21 11/17/21 14:04 18:17 22:14 Plt Count Sodium Carbon Dioxide Creatinine Glucose POC Glucose 124 H 205 H 199 H Hemoglobin A1c AST Alkaline Phosphatase Lactate Dehydrogenase Total Protein Albumin Urine WBC (Auto) U Epithel Cells (Auto) Urine Creatinine Ur Total Protein 24 Hr Urine Total Protein 11/18/21 11/18/21 11/18/21 10:02 14:44 18:01 Plt Count Sodium Carbon Dioxide Creatinine Glucose POC Glucose 121 H 203 H 235 H Hemoglobin A1c AST Alkaline Phosphatase Lactate Dehydrogenase Total Protein Albumin Urine WBC (Auto) U Epithel Cells (Auto) Urine Creatinine Ur Total Protein 24 Hr Urine Total Protein 11/18/21 11/18/21 11/19/21 19:36 22:22 02:17 Plt Count Sodium Carbon Dioxide Creatinine Glucose POC Glucose 191 H 193 H 130 H Hemoglobin A1c AST Alkaline Phosphatase Lactate Dehydrogenase Total Protein Albumin Urine WBC (Auto) U Epithel Cells (Auto) Urine Creatinine Ur Total Protein 24 Hr Urine Total Protein 11/19/21 11/19/21 11/19/21 06:17 10:58 15:06 Plt Count Sodium Carbon Dioxide Creatinine Glucose POC Glucose 110 H 112 H 120 H Hemoglobin A1c AST Alkaline Phosphatase Lactate Dehydrogenase Total Protein Albumin Urine WBC (Auto) U Epithel Cells (Auto) Urine Creatinine Ur Total Protein 24 Hr Urine Total Protein 11/19/21 11/20/21 21:47 00:43 Plt Count Sodium Carbon Dioxide Creatinine Glucose POC Glucose 137 H 110 H Hemoglobin A1c AST Alkaline Phosphatase Lactate Dehydrogenase Total Protein Albumin Urine WBC (Auto) U Epithel Cells (Auto) Urine Creatinine Ur Total Protein 24 Hr Urine Total Protein Laboratory Results - last 24 hr 11/20/21 11/21/21 15:53 05:59 POC Glucose 95 95
[2021-11-22] MEDS: INSULIN REGULAR, HUMAN 100 UNITS/1 ML SUB-Q SCH ×3 (09:27→21:56)
--- NOTE | 2021-11-22 10:40 | Progress Note ---
Assessment and Plan HD # 9 A: IUP@ 35.3 wks IDDM, Oligo LGA, H/O LTCS Antikell antibody H/O abd trauma GBS neg P: Continue routine antepartum orders Deliver @ 36 wks Subjective - Subjective Date of service: 11/22/21 Principal diagnosis: GDM uncontrolled, oligohydramnios, macrosomia, anti shaunna antibody, csec x1 Patient reports: movement normal, contractions, other (FSBS wnl) Objective - Vital Signs Vital Signs: Vital Signs - 12hr 11/21/21 11/21/21 22:25 22:34 Temperature 98.2 F Pulse Rate 74 Respiratory 16 Rate Blood Pressure 123/72 O2 Sat by Pulse 99 Oximetry - Exam Breasts: normal Abdomen: Present: normal appearance, soft, normal bowel sounds Vulva: both: normal Uterus: Present: normal FHR: auscultation normal, category 1 Uterine Contraction Monitor Mode: External Uterine Contraction Pattern: Absent Uterine Tone Measurement Phase: Resting Extremities: normal - Labs Labs: Abnormal Labs 11/13/21 11/13/21 11/13/21 02:11 02:38 02:38 Plt Count 108 L Sodium 134 L Carbon Dioxide 17 L Creatinine 0.4 L Glucose 104 H POC Glucose 120 H Hemoglobin A1c AST 42 H Alkaline Phosphatase 152 H Lactate Dehydrogenase 194 H Total Protein 6.2 L Albumin 3.5 L Urine WBC (Auto) U Epithel Cells (Auto) Urine Creatinine Ur Total Protein 24 Hr Urine Total Protein 11/13/21 11/13/21 11/13/21 02:38 04:50 04:50 Plt Count Sodium Carbon Dioxide Creatinine Glucose POC Glucose Hemoglobin A1c 7.5 H AST Alkaline Phosphatase Lactate Dehydrogenase Total Protein Albumin Urine WBC (Auto) U Epithel Cells (Auto) 15.0 H Urine Creatinine 108.7 H Ur Total Protein 24 Hr Urine Total Protein 60 H 11/13/21 11/13/21 11/13/21 12:49 13:26 18:02 Plt Count Sodium Carbon Dioxide Creatinine Glucose POC Glucose 119 H 184 H Hemoglobin A1c AST Alkaline Phosphatase Lactate Dehydrogenase Total Protein Albumin Urine WBC (Auto) U Epithel Cells (Auto) Urine Creatinine Ur Total Protein 24 Hr 580.00 H Urine Total Protein 29 H 11/14/21 11/14/21 11/14/21 01:15 11:53 15:16 Plt Count Sodium Carbon Dioxide Creatinine Glucose POC Glucose 109 H 130 H Hemoglobin A1c AST Alkaline Phosphatase Lactate Dehydrogenase Total Protein Albumin Urine WBC (Auto) U Epithel Cells (Auto) Urine Creatinine 60.4 H Ur Total Protein 24 Hr Urine Total Protein 26 H 11/14/21 11/15/21 11/15/21 19:59 05:38 15:44 Plt Count Sodium Carbon Dioxide Creatinine Glucose POC Glucose 114 H 68 L 158 H Hemoglobin A1c AST Alkaline Phosphatase Lactate Dehydrogenase Total Protein Albumin Urine WBC (Auto) U Epithel Cells (Auto) Urine Creatinine Ur Total Protein 24 Hr Urine Total Protein 11/15/21 11/16/21 11/16/21 20:14 09:15 10:38 Plt Count Sodium Carbon Dioxide Creatinine Glucose POC Glucose 137 H 66 L Hemoglobin A1c AST Alkaline Phosphatase Lactate Dehydrogenase Total Protein Albumin Urine WBC (Auto) 18.0 H U Epithel Cells (Auto) 25.0 H Urine Creatinine Ur Total Protein 24 Hr Urine Total Protein 11/16/21 11/16/21 11/16/21 14:12 17:25 17:25 Plt Count 99 L Sodium Carbon Dioxide 19 L Creatinine 0.5 L Glucose 106 H POC Glucose 143 H Hemoglobin A1c AST Alkaline Phosphatase 146 H Lactate Dehydrogenase Total Protein 5.9 L Albumin 3.1 L Urine WBC (Auto) U Epithel Cells (Auto) Urine Creatinine Ur Total Protein 24 Hr Urine Total Protein 11/16/21 11/16/21 11/17/21 18:30 23:15 10:16 Plt Count Sodium Carbon Dioxide Creatinine Glucose POC Glucose 120 H 147 H 131 H Hemoglobin A1c AST Alkaline Phosphatase Lactate Dehydrogenase Total Protein Albumin Urine WBC (Auto) U Epithel Cells (Auto) Urine Creatinine Ur Total Protein 24 Hr Urine Total Protein 11/17/21 11/17/21 11/17/21 14:04 18:17 22:14 Plt Count Sodium Carbon Dioxide Creatinine Glucose POC Glucose 124 H 205 H 199 H Hemoglobin A1c AST Alkaline Phosphatase Lactate Dehydrogenase Total Protein Albumin Urine WBC (Auto) U Epithel Cells (Auto) Urine Creatinine Ur Total Protein 24 Hr Urine Total Protein 11/18/21 11/18/21 11/18/21 10:02 14:44 18:01 Plt Count Sodium Carbon Dioxide Creatinine Glucose POC Glucose 121 H 203 H 235 H Hemoglobin A1c AST Alkaline Phosphatase Lactate Dehydrogenase Total Protein Albumin Urine WBC (Auto) U Epithel Cells (Auto) Urine Creatinine Ur Total Protein 24 Hr Urine Total Protein 11/18/21 11/18/21 11/19/21 19:36 22:22 02:17 Plt Count Sodium Carbon Dioxide Creatinine Glucose POC Glucose 191 H 193 H 130 H Hemoglobin A1c AST Alkaline Phosphatase Lactate Dehydrogenase Total Protein Albumin Urine WBC (Auto) U Epithel Cells (Auto) Urine Creatinine Ur Total Protein 24 Hr Urine Total Protein 11/19/21 11/19/21 11/19/21 06:17 10:58 15:06 Plt Count Sodium Carbon Dioxide Creatinine Glucose POC Glucose 110 H 112 H 120 H Hemoglobin A1c AST Alkaline Phosphatase Lactate Dehydrogenase Total Protein Albumin Urine WBC (Auto) U Epithel Cells (Auto) Urine Creatinine Ur Total Protein 24 Hr Urine Total Protein 11/19/21 11/20/21 11/21/21 21:47 00:43 21:41 Plt Count Sodium Carbon Dioxide Creatinine Glucose POC Glucose 137 H 110 H 140 H Hemoglobin A1c AST Alkaline Phosphatase Lactate Dehydrogenase Total Protein Albumin Urine WBC (Auto) U Epithel Cells (Auto) Urine Creatinine Ur Total Protein 24 Hr Urine Total Protein Laboratory Results - last 24 hr 11/21/21 11/21/21 11/21/21 10:22 15:22 21:41 POC Glucose 94 76 140 H 11/22/21 09:29 POC Glucose 95
[2021-11-22] MEDS: INSULIN NPH, HUMAN 100 UNIT/1 ML SUB-Q SCH ×2 (11:07→21:52)
[2021-11-23] MEDS: INSULIN REGULAR, HUMAN 100 UNITS/1 ML SUB-Q SCH ×4 (08:38→17:23)
[2021-11-23] MEDS: INSULIN NPH, HUMAN 100 UNIT/1 ML SUB-Q SCH ×2 (08:39→22:29)
--- NOTE | 2021-11-23 11:14 | Progress Note ---
Assessment and Plan HD#11, IUP at 35.4wks with uncontrolled IDDM, Anti-aida antibody positive with normal MCA, BPP and ALICJA done on 11/18/21 and followed by [facility]; previous C/S x1 and now with baby in the 99th percentile 1. Appreciate [facility], intermittent NST monitoring done every shift with reassuring FHR 2. Continue insulin mgt with Insulin 90N/30R in am, 70R for dinner and 35N at bedtime, accucheck wnl at this time. Pt has SSI prn. 3. Will continue expectant mgt and baby to be delivered at 36wks 4. Discussed using certified court/medical interpreter Antikell positive antibody and pt admits to having blood transfusion with her c/section delivery in 2019 (prev vag x2 and largest baby 7lbs). Pt states that her has not been tested for Antikell status and would rather just wait since her delivery is scheduled for repeat c/section at 36wks (in 3days) Plan of care to continue per [facility] recommendations. All questions encouraged and answered Subjective Date of service: 11/23/21 Principal diagnosis: IDDM, macrosomia, anti aida antibody, csec x1 in 2019; Interval history: pt admits to FM, and admits to feeling ctx sometimes, denies headache or LOF or vag bleed. Pt aware of uncontrolled diabetes diagnosis but not Anti Adia antibody positive Objective - Constitutional Vitals: Vital Signs - 12hr 11/23/21 11/23/21 11/23/21 08:07 08:08 09:43 Temperature 98.3 F Pulse Rate 77 73 91 H Respiratory 16 Rate Blood Pressure 137/66 Blood Pressure 137/66 [Left] O2 Sat by Pulse 100 95 Oximetry O2 Sat by Pulse 100 Oximetry [ Anterior Bilateral Throughout] 11/23/21 11/23/21 11/23/21 09:48 09:53 09:58 Temperature Pulse Rate 78 83 79 Respiratory Rate Blood Pressure Blood Pressure [Left] O2 Sat by Pulse 97 96 96 Oximetry O2 Sat by Pulse Oximetry [ Anterior Bilateral Throughout] 11/23/21 11/23/21 11/23/21 10:03 10:08 10:13 Temperature Pulse Rate 79 77 79 Respiratory Rate Blood Pressure Blood Pressure [Left] O2 Sat by Pulse 96 96 95 Oximetry O2 Sat by Pulse Oximetry [ Anterior Bilateral Throughout] 11/23/21 11/23/21 11/23/21 10:14 10:18 10:23 Temperature Pulse Rate 74 78 78 Respiratory Rate Blood Pressure Blood Pressure [Left] O2 Sat by Pulse 92 95 96 Oximetry O2 Sat by Pulse Oximetry [ Anterior Bilateral Throughout] 11/23/21 11/23/21 11/23/21 10:28 10:33 10:38 Temperature Pulse Rate 76 69 88 Respiratory Rate Blood Pressure Blood Pressure [Left] O2 Sat by Pulse 95 94 97 Oximetry O2 Sat by Pulse Oximetry [ Anterior Bilateral Throughout] 11/23/21 11/23/21 11/23/21 10:43 10:48 10:53 Temperature Pulse Rate 84 87 92 H Respiratory Rate Blood Pressure Blood Pressure [Left] O2 Sat by Pulse 98 97 97 Oximetry O2 Sat by Pulse Oximetry [ Anterior Bilateral Throughout] General appearance: Present: no acute distress - Neck Neck: normal ROM - Respiratory Respiratory effort: normal - Breasts Breasts: deferred - Cardiovascular Rhythm: regular Extremities: No edema - Gastrointestinal General gastrointestinal: Present: soft, non-tender, other (previous old c/s scar seen) - Genitourinary Female genitourinary: other (NST reactive; FHR in 150's with irregular ctx; Pelvic 4-5/30/-3 vtx/intact) - Integumentary Integumentary: warm, dry - Neurologic Neurologic: moves all extremities - Psychiatric Psychiatric: cooperative - Labs CBC & Chem 7: 11/16/21 17:25 11/16/21 17:25 Labs: Abnormal lab results 11/22/21 11/22/21 11/22/21 Range/Units 15:32 16:47 18:04 POC Glucose 65 L 69 L 144 H (70-105) mg/dL 11/22/21 Range/Units 21:50 POC Glucose 125 H (70-105) mg/dL Medications & Allergies - Medications Allergies/Adverse Reactions: Allergies No Known Allergies Allergy (Unverified 04/23/15 18:30) Home Medications: Home Medications Medication Instructions Recorded Confirmed Last Taken Type Pnv,Calcium 72/Iron/Folic Acid 1 tab PO DAILY 05/16/15 11/16/21 11/12/21 History [Pnv Plus Multivit Tab] Active Medications: Generic Name Dose Route Start Last Admin Trade Name Freq PRN Reason Stop Dose Admin Acetaminophen 650 mg 11/13/21 02:11 11/18/21 10:37 Acetaminophen 325 Mg Tab PO 650 mg Q4H PRN Administration Pain, Mild (1-3) Butorphanol Tartrate 2 mg 11/13/21 02:11 Butorphanol 2 Mg/1 Ml Inj IV Q2H PRN Pain, Moderate(4-6) LABOR PAIN Fentanyl 100 mcg 11/13/21 02:11 Fentanyl 100 Mcg/2 Ml Inj IV Q2H PRN Pain,Severe (7-10) LABOR PAIN Sodium Chloride 1,000 mls @ 125 mls/hr 11/13/21 02:15 11/16/21 03:36 Nacl 0.9% 1000 Ml IV 125 mls/hr DIRECT ZAHIDA Administration Insulin Human NPH 90 unit 11/20/21 07:30 11/23/21 08:39 Insulin Nph, Human 100 Unit/1 Ml SUB-Q 90 unit 0730 ZAHIDA Administration Insulin Human NPH 35 unit 11/20/21 22:00 11/22/21 21:52 Insulin Nph, Human 100 Unit/1 Ml SUB-Q 35 unit QHS ZAHIDA Administration Insulin Human Regular 0 units 11/17/21 14:00 11/22/21 21:56 Insulin Regular, Human 100 Units/1 Ml SUB-Q Not Given Q4HR [facility] Protocol Insulin Human Regular 30 units 11/19/21 07:30 11/23/21 08:38 Insulin Regular, Human 100 Units/1 Ml SUB-Q 30 units 0730 ZAHIDA Administration Insulin Human Regular 70 units 11/20/21 17:30 11/22/21 18:30 Insulin Regular, Human 100 Units/1 Ml SUB-Q 70 units 1730 ZAHIDA Administration
[2021-11-24] MEDS: INSULIN REGULAR, HUMAN 100 UNITS/1 ML SUB-Q SCH ×4 (09:17→18:00)
[2021-11-24] MEDS: INSULIN NPH, HUMAN 100 UNIT/1 ML SUB-Q SCH (09:37)
--- NOTE | 2021-11-24 12:03 | Progress Note ---
Assessment and Plan IUP at 35.5wks with antikell antibodies, normal MCA and reassuring FHR; prev C/S x1 and latent labor; IDDM now controlled with insulin regimen 90N/30R in am, 70R at dinner and 35N at bedtime and baby in 99th%. 1. appreciate [facility] 2. For delivery at 36wks on 11/26/21 already scheduled for repeat c/section from admission plan 3. Will do continuous EFM/toco with irreg contractions 4. Continue current effective regimen All questions encouraged and answered Subjective Date of service: 11/24/21 Principal diagnosis: IDDM, macrosomia, anti shaunna antibody, csec x1 in 2019; Interval history: pt has no complaints. Pt states that her contractions come and go and not painful. pt admits to movement, denies LOF or vag bleed Objective - Constitutional Vitals: Vital Signs - 12hr 11/23/21 11/24/21 11/24/21 23:58 00:01 00:03 Temperature Pulse Rate 79 80 81 Respiratory Rate Blood Pressure O2 Sat by Pulse 95 94 95 Oximetry O2 Sat by Pulse Oximetry [ Anterior Bilateral Throughout] 11/24/21 11/24/21 11/24/21 08:15 08:23 08:24 Temperature 97.6 F Pulse Rate 72 78 Respiratory 18 Rate Blood Pressure 131/77 O2 Sat by Pulse 93 97 Oximetry O2 Sat by Pulse 100 Oximetry [ Anterior Bilateral Throughout] 11/24/21 11/24/21 11/24/21 11:15 11:20 11:22 Temperature Pulse Rate 133 H 82 81 Respiratory Rate Blood Pressure O2 Sat by Pulse 82 L 95 94 Oximetry O2 Sat by Pulse Oximetry [ Anterior Bilateral Throughout] 11/24/21 11/24/21 11/24/21 11:25 11:28 11:30 Temperature Pulse Rate 77 71 75 Respiratory Rate Blood Pressure O2 Sat by Pulse 95 94 95 Oximetry O2 Sat by Pulse Oximetry [ Anterior Bilateral Throughout] 11/24/21 11/24/21 11/24/21 11:34 11:35 11:39 Temperature Pulse Rate 77 71 80 Respiratory Rate Blood Pressure O2 Sat by Pulse 94 95 94 Oximetry O2 Sat by Pulse Oximetry [ Anterior Bilateral Throughout] 11/24/21 11/24/21 11/24/21 11:40 11:45 11:50 Temperature Pulse Rate 80 80 74 Respiratory Rate Blood Pressure O2 Sat by Pulse 96 95 94 Oximetry O2 Sat by Pulse Oximetry [ Anterior Bilateral Throughout] 11/24/21 11:51 Temperature Pulse Rate 75 Respiratory Rate Blood Pressure O2 Sat by Pulse 94 Oximetry O2 Sat by Pulse Oximetry [ Anterior Bilateral Throughout] General appearance: Present: no acute distress - Respiratory Respiratory effort: normal - Cardiovascular Rhythm: regular Extremities: No edema - Gastrointestinal General gastrointestinal: Present: soft - Genitourinary Female genitourinary: other (FHR category I and irreg ctx seen) - Integumentary Integumentary: warm, dry - Neurologic Neurologic: moves all extremities - Psychiatric Psychiatric: cooperative - Labs CBC & Chem 7: 11/16/21 17:25 11/16/21 17:25 Labs: Abnormal lab results 11/23/21 Range/Units 17:20 POC Glucose 124 H (70-105) mg/dL Medications & Allergies - Medications Allergies/Adverse Reactions: Allergies No Known Allergies Allergy (Unverified 04/23/15 18:30) Home Medications: Home Medications Medication Instructions Recorded Confirmed Last Taken Type Pnv,Calcium 72/Iron/Folic Acid 1 tab PO DAILY 05/16/15 11/16/21 11/12/21 History [Pnv Plus Multivit Tab] Active Medications: Generic Name Dose Route Start Last Admin Trade Name Julio Cesarq PRN Reason Stop Dose Admin Acetaminophen 650 mg 11/13/21 02:11 11/18/21 10:37 Acetaminophen 325 Mg Tab PO 650 mg Q4H PRN Administration Pain, Mild (1-3) Butorphanol Tartrate 2 mg 11/13/21 02:11 Butorphanol 2 Mg/1 Ml Inj IV Q2H PRN Pain, Moderate(4-6) LABOR PAIN Fentanyl 100 mcg 11/13/21 02:11 Fentanyl 100 Mcg/2 Ml Inj IV Q2H PRN Pain,Severe (7-10) LABOR PAIN Sodium Chloride 1,000 mls @ 125 mls/hr 11/13/21 02:15 11/16/21 03:36 Nacl 0.9% 1000 Ml IV 125 mls/hr DIRECT ZAHIDA Administration Insulin Human NPH 90 unit 11/20/21 07:30 11/24/21 09:37 Insulin Nph, Human 100 Unit/1 Ml SUB-Q 90 unit 0730 ZAHIDA Administration Insulin Human NPH 35 unit 11/20/21 22:00 11/23/21 22:29 Insulin Nph, Human 100 Unit/1 Ml SUB-Q 35 unit QHS [facility] Administration Insulin Human Regular 0 units 11/17/21 14:00 11/23/21 14:35 Insulin Regular, Human 100 Units/1 Ml SUB-Q Not Given Q4HR [facility] Protocol Insulin Human Regular 30 units 11/19/21 07:30 11/24/21 09:17 Insulin Regular, Human 100 Units/1 Ml SUB-Q 30 units 0730 [facility] Administration Insulin Human Regular 70 units 11/20/21 17:30 11/23/21 17:23 Insulin Regular, Human 100 Units/1 Ml SUB-Q 70 units 1730 [facility] Administration
[2021-11-24] MEDS ORDERED: INSULIN REGULAR, HUMAN 100 UNITS/1 ML SUB-Q ONE (19:00)
[2021-11-25] MEDS: INSULIN NPH, HUMAN 100 UNIT/1 ML SUB-Q SCH ×2 (00:11→08:41)
--- NOTE | 2021-11-25 00:26 | Ultrasound Report ---
US OB follow up, US OB BPP wo non-stress INDICATION / CLINICAL INFORMATION: Class B Diabetes, Poorly controlled; LGA fetus COMPARISON: Limited OB ultrasound 11/18/2021 TECHNIQUE: Using a transcutaneous probe, multiple grayscale, color Doppler, and spectral Doppler imag es of the uterus and fetus were captured and stored. Additional biophysical profile was perform ed. FINDINGS: Single cephalic fetus heart rate 137 bpm. Amniotic fluid index is within normal limits measuring 10.6 cm. Biparietal Diameter = 10.2 cm = 41, 6 weeks, days Head Circumference = 35.5 cm = 41, 4 weeks, days Abdominal Circumference = 38.0 cm = 42, 0 weeks, days Femur Length = 6.8 cm = 35, 0 weeks, days Average Ultrasound Age (AUA) = 40, 1 weeks, days. EDC 11/23/2021. Estimated weight = 4170 g. Growth Percentile not recorded.. BREATHING MOVEMENT = 2 GROSS BODY MOVEMENT = 2 TONE = 2 QUALITATIVE AMNIOTIC FLUID VOLUME = 2 TOTAL BIOPHYSICAL SCORE = 8/8 IMPRESSION: 1. Single living fetus with estimated weight and ALICJA as detailed. 2. Normal biophysical profile. Signer Name: Sawyer Wang II, MD Signed: 11/25/2021 12:21 AM Workstation Name: [id number]
--- NOTE | 2021-11-25 00:52 | Event Note ---
Date: 11/25/21 IUP at 35-6/7 weeks. OB US Limited= SLUP. Vertex. EFW= 4170 g (>99th %-ile). ALICJA= 10.6 cm. BPP= 8/8 FBS and 2 hour PP glucoses are within target range. The patient is S/P BMTZ x2 given 1 week ago. SVE= 1 cm dilated (internal os). Plan is RCS at 36 weeks scheduled on 11/26/2021.
[2021-11-25] MEDS: INSULIN REGULAR, HUMAN 100 UNITS/1 ML SUB-Q SCH (08:41)
--- NOTE | 2021-11-25 18:05 | Progress Note ---
Assessment and Plan A: IUP at 35.5wks with antikell antibodies, normal MCA and reassuring FHR Previous C/S X1 IDDM now controlled with insulin regimen 90N/30R in am, 70R at dinner and 35N at bedtime and baby in 99th%. P: For delivery at 36wks on 11/26/21 already scheduled for repeat c/section from admission plan Will do continuous EFM/toco with irreg contractions Continue current effective regimen Subjective - Subjective Date of service: 11/25/21 Principal diagnosis: IDDM, macrosomia, anti shaunna antibody, csec x1 in 2019; Patient reports: movement normal, contractions, other (FSBS wnl) Objective - Vital Signs Vital Signs: Vital Signs - 12hr 11/25/21 11/25/21 11/25/21 06:05 06:10 06:15 Temperature Pulse Rate 76 78 76 Respiratory Rate Blood Pressure O2 Sat by Pulse 98 98 98 Oximetry O2 Sat by Pulse Oximetry [ Anterior Bilateral Throughout] 11/25/21 11/25/21 11/25/21 06:20 06:25 06:30 Temperature Pulse Rate 76 83 93 H Respiratory Rate Blood Pressure O2 Sat by Pulse 98 98 98 Oximetry O2 Sat by Pulse Oximetry [ Anterior Bilateral Throughout] 11/25/21 11/25/21 11/25/21 06:35 06:40 06:45 Temperature Pulse Rate 84 79 86 Respiratory Rate Blood Pressure O2 Sat by Pulse 98 98 97 Oximetry O2 Sat by Pulse Oximetry [ Anterior Bilateral Throughout] 11/25/21 11/25/21 11/25/21 06:50 06:55 07:00 Temperature Pulse Rate 78 94 H 92 H Respiratory Rate Blood Pressure O2 Sat by Pulse 98 98 98 Oximetry O2 Sat by Pulse Oximetry [ Anterior Bilateral Throughout] 11/25/21 11/25/21 11/25/21 07:05 07:10 07:15 Temperature Pulse Rate 79 83 76 Respiratory Rate Blood Pressure O2 Sat by Pulse 98 98 98 Oximetry O2 Sat by Pulse Oximetry [ Anterior Bilateral Throughout] 11/25/21 11/25/21 11/25/21 07:20 07:25 07:30 Temperature Pulse Rate 106 H 82 79 Respiratory Rate Blood Pressure O2 Sat by Pulse 98 97 97 Oximetry O2 Sat by Pulse Oximetry [ Anterior Bilateral Throughout] 11/25/21 11/25/21 11/25/21 07:35 07:40 07:45 Temperature Pulse Rate 79 81 80 Respiratory Rate Blood Pressure O2 Sat by Pulse 97 97 98 Oximetry O2 Sat by Pulse Oximetry [ Anterior Bilateral Throughout] 11/25/21 11/25/21 11/25/21 07:50 07:55 08:00 Temperature Pulse Rate 79 86 82 Respiratory Rate Blood Pressure O2 Sat by Pulse 98 98 99 Oximetry O2 Sat by Pulse Oximetry [ Anterior Bilateral Throughout] 11/25/21 11/25/21 11/25/21 08:20 08:25 08:30 Temperature Pulse Rate 84 85 78 Respiratory Rate Blood Pressure O2 Sat by Pulse 99 99 99 Oximetry O2 Sat by Pulse Oximetry [ Anterior Bilateral Throughout] 11/25/21 11/25/21 11/25/21 08:35 08:40 08:45 Temperature 97.7 F Pulse Rate 78 81 88 Respiratory 20 Rate Blood Pressure 125/79 O2 Sat by Pulse 98 99 98 Oximetry O2 Sat by Pulse 98 Oximetry [ Anterior Bilateral Throughout] 11/25/21 11/25/21 11/25/21 08:50 08:55 09:00 Temperature Pulse Rate 83 86 95 H Respiratory Rate Blood Pressure O2 Sat by Pulse 99 98 99 Oximetry O2 Sat by Pulse Oximetry [ Anterior Bilateral Throughout] 11/25/21 11/25/21 11/25/21 11:44 12:15 12:44 Temperature Pulse Rate 75 76 79 Respiratory Rate Blood Pressure 118/60 122/63 122/67 O2 Sat by Pulse Oximetry O2 Sat by Pulse Oximetry [ Anterior Bilateral Throughout] 11/25/21 13:45 Temperature Pulse Rate 76 Respiratory Rate Blood Pressure 111/58 O2 Sat by Pulse Oximetry O2 Sat by Pulse Oximetry [ Anterior Bilateral Throughout] - Exam Breasts: deferred Cardiovascular: Regular rate Lungs: Clear to auscultation Abdomen: Present: soft Vulva: both: normal Uterus: Present: fundal height above umbilicus FHR: category 1 Extremities: normal Deep Tendon Reflex Grade: Normal +2 - Labs Labs: Abnormal Labs 11/13/21 11/13/21 11/13/21 02:11 02:38 02:38 Plt Count 108 L Sodium 134 L Carbon Dioxide 17 L Creatinine 0.4 L Glucose 104 H POC Glucose 120 H Hemoglobin A1c AST 42 H Alkaline Phosphatase 152 H Lactate Dehydrogenase 194 H Total Protein 6.2 L Albumin 3.5 L Urine WBC (Auto) U Epithel Cells (Auto) Urine Creatinine Ur Total Protein 24 Hr Urine Total Protein 11/13/21 11/13/21 11/13/21 02:38 04:50 04:50 Plt Count Sodium Carbon Dioxide Creatinine Glucose POC Glucose Hemoglobin A1c 7.5 H AST Alkaline Phosphatase Lactate Dehydrogenase Total Protein Albumin Urine WBC (Auto) U Epithel Cells (Auto) 15.0 H Urine Creatinine 108.7 H Ur Total Protein 24 Hr Urine Total Protein 60 H 11/13/21 11/13/21 11/13/21 12:49 13:26 18:02 Plt Count Sodium Carbon Dioxide Creatinine Glucose POC Glucose 119 H 184 H Hemoglobin A1c AST Alkaline Phosphatase Lactate Dehydrogenase Total Protein Albumin Urine WBC (Auto) U Epithel Cells (Auto) Urine Creatinine Ur Total Protein 24 Hr 580.00 H Urine Total Protein 29 H 11/14/21 11/14/21 11/14/21 01:15 11:53 15:16 Plt Count Sodium Carbon Dioxide Creatinine Glucose POC Glucose 109 H 130 H Hemoglobin A1c AST Alkaline Phosphatase Lactate Dehydrogenase Total Protein Albumin Urine WBC (Auto) U Epithel Cells (Auto) Urine Creatinine 60.4 H Ur Total Protein 24 Hr Urine Total Protein 26 H 11/14/21 11/15/21 11/15/21 19:59 05:38 15:44 Plt Count Sodium Carbon Dioxide Creatinine Glucose POC Glucose 114 H 68 L 158 H Hemoglobin A1c AST Alkaline Phosphatase Lactate Dehydrogenase Total Protein Albumin Urine WBC (Auto) U Epithel Cells (Auto) Urine Creatinine Ur Total Protein 24 Hr Urine Total Protein 11/15/21 11/16/21 11/16/21 20:14 09:15 10:38 Plt Count Sodium Carbon Dioxide Creatinine Glucose POC Glucose 137 H 66 L Hemoglobin A1c AST Alkaline Phosphatase Lactate Dehydrogenase Total Protein Albumin Urine WBC (Auto) 18.0 H U Epithel Cells (Auto) 25.0 H Urine Creatinine Ur Total Protein 24 Hr Urine Total Protein 11/16/21 11/16/21 11/16/21 14:12 17:25 17:25 Plt Count 99 L Sodium Carbon Dioxide 19 L Creatinine 0.5 L Glucose 106 H POC Glucose 143 H Hemoglobin A1c AST Alkaline Phosphatase 146 H Lactate Dehydrogenase Total Protein 5.9 L Albumin 3.1 L Urine WBC (Auto) U Epithel Cells (Auto) Urine Creatinine Ur Total Protein 24 Hr Urine Total Protein 11/16/21 11/16/21 11/17/21 18:30 23:15 10:16 Plt Count Sodium Carbon Dioxide Creatinine Glucose POC Glucose 120 H 147 H 131 H Hemoglobin A1c AST Alkaline Phosphatase Lactate Dehydrogenase Total Protein Albumin Urine WBC (Auto) U Epithel Cells (Auto) Urine Creatinine Ur Total Protein 24 Hr Urine Total Protein 11/17/21 11/17/21 11/17/21 14:04 18:17 22:14 Plt Count Sodium Carbon Dioxide Creatinine Glucose POC Glucose 124 H 205 H 199 H Hemoglobin A1c AST Alkaline Phosphatase Lactate Dehydrogenase Total Protein Albumin Urine WBC (Auto) U Epithel Cells (Auto) Urine Creatinine Ur Total Protein 24 Hr Urine Total Protein 11/18/21 11/18/21 11/18/21 10:02 14:44 18:01 Plt Count Sodium Carbon Dioxide Creatinine Glucose POC Glucose 121 H 203 H 235 H Hemoglobin A1c AST Alkaline Phosphatase Lactate Dehydrogenase Total Protein Albumin Urine WBC (Auto) U Epithel Cells (Auto) Urine Creatinine Ur Total Protein 24 Hr Urine Total Protein 11/18/21 11/18/21 11/19/21 19:36 22:22 02:17 Plt Count Sodium Carbon Dioxide Creatinine Glucose POC Glucose 191 H 193 H 130 H Hemoglobin A1c AST Alkaline Phosphatase Lactate Dehydrogenase Total Protein Albumin Urine WBC (Auto) U Epithel Cells (Auto) Urine Creatinine Ur Total Protein 24 Hr Urine Total Protein 11/19/21 11/19/21 11/19/21 06:17 10:58 15:06 Plt Count Sodium Carbon Dioxide Creatinine Glucose POC Glucose 110 H 112 H 120 H Hemoglobin A1c AST Alkaline Phosphatase Lactate Dehydrogenase Total Protein Albumin Urine WBC (Auto) U Epithel Cells (Auto) Urine Creatinine Ur Total Protein 24 Hr Urine Total Protein 11/19/21 11/20/21 11/21/21 21:47 00:43 21:41 Plt Count Sodium Carbon Dioxide Creatinine Glucose POC Glucose 137 H 110 H 140 H Hemoglobin A1c AST Alkaline Phosphatase Lactate Dehydrogenase Total Protein Albumin Urine WBC (Auto) U Epithel Cells (Auto) Urine Creatinine Ur Total Protein 24 Hr Urine Total Protein 11/22/21 11/22/21 11/22/21 15:32 16:47 18:04 Plt Count Sodium Carbon Dioxide Creatinine Glucose POC Glucose 65 L 69 L 144 H Hemoglobin A1c AST Alkaline Phosphatase Lactate Dehydrogenase Total Protein Albumin Urine WBC (Auto) U Epithel Cells (Auto) Urine Creatinine Ur Total Protein 24 Hr Urine Total Protein 11/22/21 11/23/21 11/23/21 21:50 11:11 17:20 Plt Count Sodium Carbon Dioxide Creatinine Glucose POC Glucose 125 H 111 H 124 H Hemoglobin A1c AST Alkaline Phosphatase Lactate Dehydrogenase Total Protein Albumin Urine WBC (Auto) U Epithel Cells (Auto) Urine Creatinine Ur Total Protein 24 Hr Urine Total Protein 11/24/21 11/24/21 11/24/21 14:29 17:23 23:26 Plt Count Sodium Carbon Dioxide Creatinine Glucose POC Glucose 120 H 64 L 119 H Hemoglobin A1c AST Alkaline Phosphatase Lactate Dehydrogenase Total Protein Albumin Urine WBC (Auto) U Epithel Cells (Auto) Urine Creatinine Ur Total Protein 24 Hr Urine Total Protein 11/25/21 17:23 Plt Count Sodium Carbon Dioxide Creatinine Glucose POC Glucose 63 L Hemoglobin A1c AST Alkaline Phosphatase Lactate Dehydrogenase Total Protein Albumin Urine WBC (Auto) U Epithel Cells (Auto) Urine Creatinine Ur Total Protein 24 Hr Urine Total Protein Laboratory Results - last 24 hr 11/24/21 11/24/21 11/25/21 19:25 23:26 05:52 POC Glucose 98 119 H 94 11/25/21 17:23 POC Glucose 63 L
[2021-11-26] MEDS: INSULIN NPH, HUMAN 100 UNIT/1 ML SUB-Q SCH (00:48)
[2021-11-26 07:07] LABS: Hematocrit 36.4 % (30.3-42.9); Hemoglobin 12.2 gm/dl (10.1-14.3); Mean Corpuscular HGB Conc 34 % (30-34); Mean Corpuscular Volume 89 fl (79-97); Platelet Count 112 K/mm3 (140-440); Red Blood Count 4.07 M/mm3 (3.65-5.03); Red Cell Distribution Width 14.4 % (13.2-15.2)
[2021-11-26] MEDS ORDERED: INSULIN GLARGINE 100 UNITS/ML SUB-Q ONE (23:23)
[2021-11-26] MEDS ORDERED: INSULIN LISPRO 100 UNIT/ML SUB-Q ONE (23:50)
[2021-11-27] MEDS ORDERED: GLUCAGON (HUMAN RECOMBINANT) 1 MG/ML INJ SUB-Q PRN (01:44)
[2021-11-27] MEDS: SODIUM CHLORIDE 0.9% 1000 ML 1,000 ML IV SCH (08:50)
[2021-11-27] MEDS ORDERED: OXYTOCIN DRIP 30,000 MILLIUNITS/500 ML BAG IV ONE (21:58)
[2021-11-27] MEDS ORDERED: METOCLOPRAMIDE 10 MG/2 ML INJ IV NR (22:00)
[2021-11-27] MEDS ORDERED: ceFAZolin/STERILE WATER 2 GM/20 ML SYRINGE IV NR (22:00)
[2021-11-27] MEDS ORDERED: FAMOTIDINE 20 MG/2 ML INJ IV SCH (22:00)
[2021-11-27] MEDS ORDERED: BICITRA ORAL LIQD 30ML PO ONE (22:21)
[2021-11-27] MEDS ORDERED: ceFAZolin/STERILE WATER 2 GM/20 ML SYRINGE IV ONE (22:40)
[2021-11-27] MEDS ORDERED: WATER FOR IRRIG STERILE 1,500 ML BOTTLE IR ONE (23:02)
[2021-11-27] MEDS ORDERED: SODIUM CHLORIDE 0.9% IRR 1,500 ML BOTTLE IR ONE (23:02)
[2021-11-27] MEDS ORDERED: OXYTOCIN DRIP 30 UNITS/500 ML BAG IV SCH (23:45)
--- NOTE | 2021-11-27 23:55 | Operative Report ---
Operative Report Operative Report: Date of surgery: 11/27/2021 Preoperative diagnoses: Insulin controlled gestational diabetes, 36 weeks, previous section, oligohydramnios Postoperative diagnoses: The same. Operation: Lower segment transverse delivery Surgeon:Ava Harper MD Shipping Services Sales Representative: Iman Ames CRNA Anesthesia: Spinal block Quantitative blood loss: 1035 mL Complications: None Findings: Live baby boy in cephalic presentation weight 9 pounds 12 ounces, Apgars 8/9. The ovaries fallopian tubes on the uterus were all grossly normal. Procedure in detail: The patient was taken to the operating room and given a spinal block. Patient was placed in the straight supine position and a Onofre catheter was inserted. The patient was prepped in the abdomen. The drapes were placed. A timeout was done. With the go ahead from the used car make ready worker, a Pfannenstiel incision was made. This incision was carried across the subcutaneous layer to the fascia which was also divided transversely. The recti abdominis muscle flaps were stripped from the fascia using a combination of blunt and sharp dissections. The muscles were in the midline to gain access to the anterior parietal peritoneum which was divided after excluding any underlying viscera. The access to the peritoneal cavity was then widened by manual stretching. The bladder blade was applied. The utero vesicle peritoneal flap was divided transversely allowing the bladder to be displaced caudally. The uterine incision was placed in the lower segment transversely. The uterine incision was carried to the decidual layer. The uterine incision was extended on both sides using the bandage scissors. The amniotic sac was ruptured with clear fluid. The head was lifted out of the false maternal pelvis and delivered through the incision using fundal pressure combined with traction using the Kiwi. The airways were bulb suctioned beginning with the mouth. Continuing fundal pressure combined with traction on the mandibular processes of the jaw delivered the rest of the baby. The umbilical cord was double clamped and divided. The baby was carefully transferred to the pediatric team. The placenta was manually removed from the uterine cavity. The uterine cavity was explored and was empty of any placental remnants. The uterine incision was repaired in 2 layers with #1 Vicryl. The surgical line on the uterus was hemostatic. Blood and clots were cleared from the peritoneal cavity. The anterior parietal peritoneum was repaired with #1 Vicryl. The fascia was repaired with #1 Vicryl. The subcutaneous layer was made hemostatic using the Bovie before the skin was closed subcuticularly with 4-0 Vicryl. There were no complications. The quantitative blood loss was 1035 mL. All sponges and instrument counts were correct. Patient was safely transferred to the recovery room.
[2021-11-27] MEDS ORDERED: WITCH HAZEL/ GLYCERIN PAD TP PRN (23:59)
[2021-11-27] MEDS ORDERED: KETOROLAC 30 MG/1 ML INJ IV PRN ×2 (23:59)
[2021-11-27] MEDS ORDERED: HYDROcodone/ACETAMINOPHEN 5-325 MG TAB PO PRN (23:59)
[2021-11-27] MEDS ORDERED: IBUPROFEN 600 MG TAB PO PRN (23:59)
[2021-11-27] MEDS ORDERED: ONDANSETRON 4 MG/2 ML INJ IV PRN (23:59)
[2021-11-27] MEDS ORDERED: PROMETHAZINE 25 MG RECT SUPP PR PRN (23:59)
[2021-11-27] MEDS ORDERED: LANOLIN/ZINC/DIMETHICONE (LANSINOH) 7 GM TP PRN (23:59)
[2021-11-27] MEDS ORDERED: MORPHINE 4 MG/1 ML INJ IV PRN (23:59)
[2021-11-27] MEDS ORDERED: ACETAMINOPHEN 325 MG TAB PO PRN (23:59)
[2021-11-27] MEDS ORDERED: MORPHINE 2 MG/1 ML INJ IV PRN (23:59)
[2021-11-27] MEDS ORDERED: NALOXONE 0.4 MG/1 ML INJ IV PRN (23:59)
[2021-11-28] MEDS ORDERED: ACETAMINOPHEN 325 MG TAB PO PRN ×2 (00:14→00:16)
[2021-11-28] MEDS ORDERED: NALOXONE 0.4 MG/1 ML INJ IV PRN (00:31)
[2021-11-28] MEDS ORDERED: PROMETHAZINE 25 MG TAB PO PRN (00:31)
[2021-11-28] MEDS ORDERED: HYDROmorphone 1 MG/1 ML INJ IV PRN (00:31)
[2021-11-28] MEDS ORDERED: ONDANSETRON 4 MG/2 ML INJ IV PRN (00:31)
[2021-11-28] MEDS ORDERED: MORPHINE 4 MG/1 ML INJ IV PRN (00:31)
[2021-11-28] MEDS ORDERED: PROMETHAZINE 25 MG RECT SUPP PR PRN (00:31)
--- NOTE | 2021-11-28 00:33 | Anesthesia Consultation ---
Anesthesia Consult and Med Hx Date of service: 11/27/21 - Airway Anesthetic Teeth Evaluation: Good ROM Head & Neck: Adequate Mental/Hyoid Distance: Adequate Mallampati Class: Class II Intubation Access Assessment: Probably Good - Pulmonary Exam CTA: Yes - Cardiac Exam Cardiac Exam: RRR - Pre-Operative Health Status ASA Pre-Surgery Classification: ASA2 Proposed Anesthetic Plan: Spinal Nerve Block: Obey Tap - Pulmonary Hx Smoking: No Hx Asthma: No Hx Respiratory Symptoms: No SOB: No COPD: No Home Oxygen Therapy: No Hx Pneumonia: No Hx Sleep Apnea: No - Cardiovascular System Hx Hypertension: No Hx Coronary Artery Disease: No Hx Heart Attack/AMI: No Hx Angina: No Hx Percutaneous Transluminal Coronary Angioplasty (PTCA): No Hx Cardia Arrhythmia: No Hx Pacemaker: No Hx Internal Defibrillator: No Hx Valvular Heart Disease: No Hx Heart Murmur: No Hx Peripheral Vascular Disease: No - Central Nervous System Hx Neuromuscular Disorder: No Hx Seizures: No CVA: No Hx Back Pain: No Hx Psychiatric Problems: No - Gastrointestinal Hx Ulcer: No Hx Gastroesophageal Reflux Disease: No - Endocrine Hx Renal Disease: No Hx End Stage Renal Disease: No Hx Cirrhosis: No Hx Liver Disease: No Hx Insulin Dependent Diabetes: No Hx Non-Insulin Dependent Diabetes: No Hx Thyroid Disease: No Hx Hypothyroidism: No Hx Hyperthyroidism: No - Hematic Hx Anemia: No Hx Sickle Cell Disease: No - Other Systems Hx Alcohol Use: No Hx Substance Use: No Hx Cancer: No Hx Obesity: Yes
--- NOTE | 2021-11-28 00:34 | Progress Note ---
Spinal Anesthesia Block - Spinal Anesthesia Block Start Time: 22:37 Stop Time: 22:42 Performed by:: LAURA NOLASCO Procedure: The patient was placed in a sitting position on the OR table and monitors applied. A timeout was performed immediately prior to the start of the procedure. The patient was Prepped and draped in a sterile fashion and the skin was localized with 3 mL 1% lidocaine at L[4]-L[5] interspace. An introducer was placed into the back between L4-L5 and a 25g spinal needle was advanced into the intrathecal space until clear, free flowing CSF was observed. 1.8cc of 0.75% hyperbaric bupivacaine + 0.5mcg Precedex was injected into the intrathecal space and the spinal needle was removed. The patient tolerated the procedure well and there were no immediate complications noted.
--- NOTE | 2021-11-28 00:34 | Anesthesia Day of Surgery ---
Anesthesia Day of Surgery - Day of Surgery Patient Examined: Yes Patient H&P Reviewed: Yes Patient is NPO: Yes Beta Blockers: No Cardiac Clearance: No Pulmonary Clearance: No Santos's Test: N/A
--- NOTE | 2021-11-28 00:35 | Progress Note ---
Regional Anesthesia Block - Regional Anesthesia Block Start Time: 00:09 Stop Time: 00:16 Performed By:: LAURA NOLASCO Procedure: During the pre-op interview the patient agreed to and signed a consent for a TAP block for post surgical pain management. After her C/S was completed a time out was performed prior to the start of the procedure. The Trans Abdominal Plane was identified bilaterally via ultrasound. The skin was prepped bilaterally with chlorhexidine and a 22g stimuplex needle was advanced to the area between the internal oblique muscle and the trans abdominal plane. Marcaine 0.25% 30mlwas injected under ultrasound guidance on the left and right side. Negative aspiration every 5mL, There was no change in the patients heart rate or rhythm and the patient tolerated the procedure well. No apparent complications were observed.
[2021-11-28] MEDS ORDERED: fentaNYL-BUPIV 2 MCG/ML-0.125% 200 MCG/100 ML BAG EPIDURAL SCH (01:00)
[2021-11-28] MEDS: SODIUM CHLORIDE 0.9% 1000 ML 1,000 ML IV SCH (01:46)
[2021-11-28] MEDS ORDERED: DEXTROSE 50% IN WATER (25GM) 50 ML SYRINGE IV PRN (02:38)
[2021-11-28] MEDS: HYDROmorphone 1 MG/1 ML INJ IV PRN ×2 (03:49→09:23)
--- NOTE | 2021-11-28 05:36 | Post Anesthesia Evaluation ---
- Post Anesthesia Evaluation Patient Participated: No Airway Patent: Yes Stable Respiratory Function: Yes Nausea/Vomiting: No Temp > 96.8F: Yes Pain Manageable: Yes Adequeate Hydration: Yes Anesthesia Complications: No Block Receding Appropriately: Yes Patient on Ventilator: No
[2021-11-28] MEDS: ceFAZolin/NS 1 GM/50 ML 1 GM/50 ML BAG IV SCH ×2 (05:55→14:07)
--- NOTE | 2021-11-28 08:30 | Progress Note ---
Assessment and Plan O: BS Wnl as she is not eating currently A: POD # 1 - stable P: Continue to monitor BS Continue post op care Subjective - Subjective Date of service: 11/28/21 Principal diagnosis: Repeat POD # 1, IDDM, macrosomia, anti shaunna anti body Patient reports: pain well controlled : doing well Objective - Vital Signs Latest vital signs: Vital Signs Temp Pulse Resp BP BP Pulse Ox Pulse Ox 11/28/21 04:27 98.7 F 80 18 147/82 96 11/28/21 03:19 100 11/28/21 01:45 73 154/80 11/28/21 01:35 147/83 11/28/21 01:30 65 16 159/83 99 11/28/21 01:25 161/80 11/28/21 01:20 163/79 11/28/21 01:15 163/82 11/28/21 01:05 82 15 151/78 98 11/28/21 00:50 80 16 140/80 99 11/28/21 00:35 79 17 138/73 99 11/28/21 00:20 82 15 119/80 99 11/28/21 00:15 84 13 122/69 99 11/28/21 00:10 85 15 121/67 98 11/28/21 00:04 97.6 F 92 H 18 115/67 98 11/27/21 21:35 78 124/78 11/27/21 20:11 98.8 F 16 98 11/27/21 20:09 76 138/73 11/27/21 15:11 97.9 F 20 11/27/21 15:10 68 140/71 11/27/21 15:09 67 151/72 11/27/21 08:56 98 11/27/21 08:42 72 116/56 11/27/21 08:35 98.4 F 20 Intake and Output 11/27/21 11/28/21 11/28/21 22:59 06:59 14:59 Intake Total 1000 1425 Output Total 1300 Balance 1000 125 Intake: IV 1000 1425 NaCl 0.9% 1000 ml 1,000 1000 ml @ 125 mls/hr IV DIRECT ZAHDIA Rx#:[id number] Right Forearm 125 Output: Urine 1300 Indwelling Catheter 1200 Other: Total, Output Amount 600 Estimated Blood Loss 1,035 - Exam Breasts: Present: deferred Cardiovascular: Present: Regular rate Lungs: Present: Clear to auscultation Abdomen: Present: soft Vulva: both: normal Uterus: Present: fundal height below umbilicus Deep Tendon Reflex Grade: Normal +2 Incision: Present: dressed - Labs Labs: Abnormal lab results 11/27/21 11/28/21 Range/Units 10:16 05:47 POC Glucose 153 H 66 L (70-105) mg/dL
[2021-11-28] MEDS ORDERED: FERROUS SULFATE 325 MG TAB PO SCH (10:00)
[2021-11-28 12:40] LABS: Hematocrit 32.1 % (30.3-42.9)
[2021-11-28] MEDS: IBUPROFEN 800 MG TAB PO PRN ×2 (14:14→20:58)
[2021-11-28] MEDS: HYDROcodone/ACETAMINOPHEN 5-325 MG TAB PO PRN (23:38)
[2021-11-29] MEDS: HYDROcodone/ACETAMINOPHEN 5-325 MG TAB PO PRN ×3 (05:48→20:17)
--- NOTE | 2021-11-29 07:41 | Progress Note ---
Assessment and Plan A: POD # 2 - IDDM P: glucose monitoring changed to Fasting and 2 hr PP Continue post op care Subjective - Subjective Date of service: 11/29/21 Principal diagnosis: Repeat POD # 2, IDDM, macrosomia, anti shaunna antibody Patient reports: appetite normal [place]: doing well Objective - Vital Signs Latest vital signs: Vital Signs Temp Pulse Resp BP BP Pulse Ox Pulse Ox 11/28/21 23:17 98.2 F 87 20 138/54 97 11/28/21 22:22 96 11/28/21 21:01 83 140/68 11/28/21 20:07 98.5 F 83 20 140/68 98 11/28/21 16:04 98.6 F 87 20 140/68 95 11/28/21 11:47 97.9 F 78 16 132/70 98 11/28/21 11:16 73 141/81 11/28/21 08:46 100 11/28/21 08:16 98.6 F 79 16 129/71 93 Intake and Output 11/28/21 11/29/21 11/29/21 22:59 06:59 14:59 Intake Total 560 300 Output Total 950 600 Balance -390 -300 Intake: IV 20 Right Forearm 20 Oral 540 300 Output: Urine 950 600 Void 950 600 Other: Total, Intake Amount 300 100 Total, Output Amount 400 600 Voiding Method Toilet - Exam Breasts: Present: deferred Cardiovascular: Present: Regular rate Lungs: Present: Clear to auscultation Abdomen: Present: soft Vulva: both: normal Uterus: Present: fundal height below umbilicus Deep Tendon Reflex Grade: Normal +2 Incision: Present: dressed - Labs Labs: Abnormal lab results 11/28/21 Range/Units 18:08 POC Glucose 185 H (70-105) mg/dL
[2021-11-29] MEDS: IBUPROFEN 800 MG TAB PO PRN ×2 (10:24→21:03)
[2021-11-29] MEDS ORDERED: metFORMIN 500 MG TAB ONE (20:59)
[2021-11-30] MEDS: HYDROcodone/ACETAMINOPHEN 5-325 MG TAB PO PRN ×2 (04:46→11:50)
[2021-11-30] MEDS: IBUPROFEN 800 MG TAB PO PRN ×2 (06:12→11:50)
[2021-11-30] MEDS ORDERED: metFORMIN 500 MG TAB PO SCH (08:00)
--- NOTE | 2021-11-30 09:13 | Discharge Summary ---
Providers - Providers Date of Admission: 11/13/21 02:11 Date of discharge: 11/30/21 Attending physician: RUSSEL LOMBARDI MD [facility] 11/13/21 08:35 Consult to Dietitian/Nutrition [CONS] Stat Physician Instructions: Reason For Exam: Poorly controlled gestational diabetes vs. pregest Reason for Consult: Diet education 11/13/21 09:52 Consult to Physician [CONS] Routine Comment: Consulting Provider: RONNA PHILLIPS I Physician Instructions: gdm oilgo Reason For Exam: [place], Uncontrolled diabetes 11/28/21 08:03 Consult to Dietitian/Nutrition [CONS] Routine Physician Instructions: Reason For Exam: Reason for Consult: Diet education Primary care physician: RUSSEL LOMBARDI MD Hospitalization Reason for admission: other (ABDOMINAL PAIN, OLIGOHYDRAMNIOS, GDM VS DM TYPE2, MORBID OBESITY) Delivery: (REPEAT CSECTION) Procedure: section Episiotomy: none Laceration: none Incision: normal, dry, intact Other procedures: none complications: none Discharge diagnosis: delivery [place] baby: male (AT 36WKS GESTATION 9#12oz) Condition at discharge: Good Disposition: 01 HOME / SELF CARE / HOMELESS Plan - Discharge Medications Prescriptions: metFORMIN [Glucophage] 500 mg PO BIDDIAB #60 tablet Ibuprofen [Motrin 800 MG tab] 800 mg PO Q8HR PRN #30 tablet PRN Reason: Pain, Moderate (4-6) HYDROcodone/APAP 5-325 [Corral 5-325 mg TAB] 1 each PO Q6H PRN #20 tablet PRN Reason: Pain , Severe (7-10) - Provider Discharge Summary Activity: no sex for 6 weeks, no heavy lifting 4 weeks, no strenuous exercise Diet: other (Diabetic) Instructions: routine Additional instructions: [] Smoking cessation referral if applicable(refer to patient education folder for contact #) [] Refer to [facility] Booklet Call your doctor immediately for: * Fever > 100.5 * Heavy vaginal bleeding ( >1 pad per hour) * Severe persistent headache * Shortness of breath * Reddened, hot, painful area to leg or breast * Drainage or odor from incision. * Keep incision clean and dry at all times and follow doctor's instructions regarding bathing/showering PLEASE FOLLOW UP WITH PRIMARY CARE PHYSICIAN FOR DIABETES - Follow up plan Follow up: DERIC GONZALES MD [Staff Physician] - 7 Days (for incision check) CACHORRO CHASE MD [Referring] - 7 Days (Follow up for blood sugar/ diabetes management)
[2021-11-30 13:44] VITALS: BP 124/74
== END 2021-11-30 16:02 | disposition home or self-care (01) | DRG 787 ==
LOC: TRG 20:58 → APU 21:01 → TRG 11-13 02:11 → LD 11-13 02:11 → UNDOADMIN 11-13 02:11 → APU 11-27 23:24 → OB 11-28 02:36
PROVIDERS: ADMIT Obstetrics & Gynecology Gynecology; ATTEND Obstetrics & Gynecology Gynecology
PROC: 10D00Z1 Extraction of Products of Conception, Low, Open Approach (ICD-10-PCS; principal; 2021-11-27)
DX: O34.219 Maternal care for unspecified type scar from previous cesarean delivery (principal); O41.03X0 Oligohydramnios, third trimester, not applicable or unspecified; O99.12 Other diseases of the blood and blood-forming organs and certain disorders involving the immune mechanism complicating childbirth; O24.429 Gestational diabetes mellitus in childbirth, unspecified control; Z3A.34 34 weeks gestation of pregnancy; O36.63X0 Maternal care for excessive fetal growth, third trimester, not applicable or unspecified; O99.214 Obesity complicating childbirth; O34.211 Maternal care for low transverse scar from previous cesarean delivery; D69.6 Thrombocytopenia, unspecified; E66.01 Morbid (severe) obesity due to excess calories; Z37.0 Single live birth; Z20.822 Contact with and (suspected) exposure to COVID-19
CPT/HCPCS: 36415; 76815; 76816; 76819; 80053; 81001; 82570; 82962; 83036; 83615; 84112; 84156; 84443; 84550; 85014; 85018; 85025; 85027; 86850; 86870; 86886; 86900; 86901; 87086; 87116; 93005; 93888; G0378; J2354; J3490; Q9967; J0690; J0702; J1170; J1815; J1885; J2405; J2765; J7030; U0003